=== PATIENT | female | born 1955 | race Caucasian/White ===

== ENCOUNTER 2019-03-25 15:54 | Observation (INO) | payer MEDICARE, SELFPAY ==
[2019-03-08 12:12] VITALS: BP 135/72; PULSE 74; RESP 18; TEMP 36.8; O2SAT 98; BMI 28.6
[2019-03-08 13:18] VITALS: BP 135/72; PULSE 55; RESP 18; TEMP 36.7; O2SAT 98
--- NOTE | 2019-03-08 15:34 | PC.NURSE ---
1530 PT CAME INTO OFFICE AND INFORMED ME SHE JUST SAW DR ZAMARRIPA. DR ZAMARRIPA VIEWED UA WITH REFLEX THAT WAS OBTAINED TODAY AND PLACED PT ON ANTIBIOTIC.I INST PT TO NOTIFY DR PATTON .
--- NOTE | 2019-03-15 14:05 | PC.NURSE ---
PT STATES NO CHANGE IN HEALTH HX FROM 03/08/19
[2019-03-24] VITALS (12 sets, daily range): BP systolic 113–138; BP diastolic 51–75; PULSE 65–108; RESP 12–20; TEMP 36.4–37.3; O2SAT 90–100
--- NOTE | 2019-03-24 07:44 | WPDHPUPDATE1 ---
History and Physical Update Update Date/Time: 03/24/19 07:44 History and Physical has been reviewed, including an updated exam of the patient. There are NO changes in the patient's condition. Risks, benefits, and alternatives have been discussed and questions answered. Patient agrees to proceed with procedure.
--- NOTE | 2019-03-24 13:24 | WPDANESEPPF ---
Anes - Initial Pre Proc Eval Procedure: Operation Date: 03/24/19 13:30 Proposed Procedures p Right Total Knee Arthroplasty(Right) - Ford Hendrix MD Date/Time: 03/24/19 13:24 Surgeon: Ford Hendrix MD Pre Op Diagnosis: Right Knee DJD Patient Data Age: 63 Gender: F Height: 1.71 m Weight: 84.2 kg Last Vital Signs Temp 36.7 C 03/08/19 13:18 Pulse 55 L 03/08/19 13:18 Resp 18 03/08/19 13:18 BP 135/72 03/08/19 13:18 Pulse Ox 98 03/08/19 13:18 Allergies Allergy/AdvReac Type Severity Reaction Status Date / Time prochlorperazine Allergy Mild PT DOESNT Verified 03/24/19 13:09 REMEMBER flurazepam AdvReac Unknown Confusion Verified 03/24/19 13:09 tramadol AdvReac Unknown Nausea and Verified 03/24/19 13:09 Vomiting Contrast Media Allergy Severe ITCHING, Uncoded 03/24/19 13:09 SOB Home Medications Medication Instructions Recorded Confirmed Type cyclosporine 0.05 % eye drops in a 1 drop EACH EYE Q12H 01/21/19 03/24/19 History dropperette estradiol 1 gm VAGINAL WEEKLY 01/21/19 03/24/19 History hydrochlorothiazide 25 mg tablet 12.5 mg PO DAILY 01/21/19 03/24/19 History pantoprazole 40 mg tablet,delayed 40 mg PO QAM 01/21/19 03/24/19 History release cholecalciferol (vitamin D3) 2,000 unit PO DAILY 03/08/19 03/24/19 History lactobacillus combination no.8 3,000 mmu cells PO DAILY 03/08/19 03/24/19 History [Adult Probiotic] potassium chloride [Klor-Con M20] 20 meq PO DAILY 03/08/19 03/24/19 History liraglutide [Victoza 2-Surendra] 1.8 mg SUBCUT DAILY 03/24/19 03/24/19 History ECG: Date of Service: 03/08/19 Procedure(s): CA 12 lead EKG Accession Number(s): [id number] cc: ~ Measurements Intervals Rake Rate: 54 P: 46 OR: 181 QRS: -58 QRSD: 99 T: 9 QT: 418 QTc: 398 Interpretive Statements SINUS BRADYCARDIA LEFT AXIS DEVIATION LOW QRS VOLTAGE IN PRECORDIAL LEADS BORDERLINE T WAVE ABNORMALITY- INFERIOR LEADS BASELINE ARTIFACT- I, II, III, AVR, AVL,A VF, V1-V6 BORDERLINE ECG Electronically Signed On 03-08-2019 13:32:53 [employer] WORK[employer] by Taz Max D.O. Dictated By: Taz Max DO 03/08/19 1321 Patient hx anesthesia problems: post op nausea/vomiting Family hx anesthesia problems: none PMFSH Past Medical History Medical History (Updated 03/24/19 @ 13:27 by Juwan Murrell MD) Anxiety Arthritis B12 deficiency Brain aneurysm BRAIN ANEURYSM WASH U.EVERY 2 YRS.JUST WATCHING Degenerative joint disease of knee Depression Elevated uric acid in blood AZIZA (generalized anxiety disorder) GERD (gastroesophageal reflux disease) Heart murmur Hx of cataract Kidney disease LITA (obstructive sleep apnea) Osteoarthritis Phlebitis Stroke Tinnitus Transient ischemic attack Varicose veins of both legs with edema Surgical History Surgical History H/O elbow surgery H/O shoulder surgery H/O toe surgery H/O wrist surgery H/O: hysterectomy History of cholecystectomy Social History Social History (Updated 03/08/19 @ 14:30 by Tali Chambers) Smoking packs per day: 1 Smoking cigarettes per day: 20.0 Smoking status: Former smoker Tobacco type: cigarettes Second hand tobacco smoke exposure: No Smoking end date: 03/03/08 Alcohol intake: former Substance use: never Substance use type: does not use Additional living arrangements comments: pt lives with boyfriend Gender identity (if verbalized by the patient): Female Anes - Eval Final PreProcedure Day of Procedure 03/24/19 13:24 Patient weight: overweight Heart: regular rate and rhythm Lungs: clear to auscultation and normal air movement Airway:
[2019-03-24] MEDS: LACTATED RINGERS 1,000 ML 30 ML IV CONT ×2 (13:25→17:04)
[2019-03-24] MEDS: IBUPROFEN IV 800 MG/200 ML 800 MG/200 ML BAG 400 MG IVPB (13:25)
--- NOTE | 2019-03-24 14:03 | WPDANESPNB ---
Anes - Peripheral Nerve Block Date/Time: 03/24/19 14:03 I have discussed with the patient/family/POA the placement of a peripheral nerve block for post-operative pain management, including associated risks, benefits, complications, and side effects. Alternative methods of post-operative analgesia were detailed. Questions were solicited and answers provided to the satisfaction of the patient/family/POA. Time-Out: A pre-procedural Time-Out was completed immediately before starting the procedure and confirmed: Patient Identification, Site, Procedure, Patient Position and the Availability of Requisite Equipment. Clinical Indications: Acute post-operative pain management requested by the operative surgeon. Nerve Block Insertion Note Anes-nerve block: adductor canal right Patient position: supine Skin prep: chlorhexidine Needle: 22 gauge, stimulating, insulated echogenic needle. Needle length: 80 mm Technique: ultrasound Technique comment: in plane Injectate: bupivacaine 0.5% with epi 5 mcg/ml (30cc) Observations: tolerated well Complications: none Procedure start time:: 1355 Procedure end time:: 1400
[2019-03-24] MEDS: ceFAZolin 2 GM/D5W 50 ML 2 GM/50 ML BAG IVPB (14:33)
--- NOTE | 2019-03-24 16:59 | PM.OP ---
Procedure Note - Brief Procedure Note - Brief Date of procedure: 03/24/19 Pre-op diagnosis: Right Knee DJD Post-op diagnosis: same Procedure performed: R TKA Anesthesia: GETA Surgeon: Ford Hendrix MD Estimated blood loss (mL): 100 Complications: No immediate complications Condition: stable Disposition: PACU
[2019-03-24] MEDS: HYDROMORPHONE HCL 1 MG/ML INJ 0.25 MG IV PUSH ×2 (17:09→17:25)
[2019-03-24] MEDS: ONDANSETRON INJ 4 MG/2 ML VIAL IV PUSH ×2 (18:10→22:07)
--- NOTE | 2019-03-24 18:50 | PC.NURSE ---
This patient, Phyllis Gallegos, was admitted to [facility] Surg Room 309-01. Patient/family oriented to hospital policies and general routines including ID bracelet, bed and alarms, visiting hours, pain management, procedures, bathroom and other care routines, personal items, smoking policy, room service/diet, and visiting hours. Valuables list has been completed. Information on how to activate the Rapid Response Team has been discussed. Patient/Family are encouraged to report perceived risks to care and to ask questions if they do not understand what they are told or what they should do.
[2019-03-24] MEDS: SODIUM CHLORIDE 0.9% IV 1,000 ML 125 ML IV CONT (19:11)
--- NOTE | 2019-03-24 19:41 | OP_ITS ---
DATE OF PROCEDURE: 03/24/2019 PREOPERATIVE DIAGNOSIS: Right knee DJD. POSTOPERATIVE DIAGNOSIS: Right knee DJD. PROCEDURE: Right total knee arthroplasty. ANESTHESIA: General. COMPLICATIONS: None. INDICATIONS: This is a 63-year-old female with end-stage right knee DJD with valgus deformity. She was indicated for right total knee arthroplasty. DESCRIPTION OF PROCEDURE: The patient was taken to the operating room in stable condition and placed in supine position. General anesthesia was induced and the right lower extremity was prepped and draped sterilely from the toes to the thigh. A midline skin incision was made. Medial parapatellar arthrotomy was made. Patella was everted. There was severe arthrosis in all 3 components of the knee, less in the patellofemoral component. An IM seda was placed in the femur. Distal femoral cut was made at 5 degrees of valgus, removing approximately 9 mm from the high side. Next, the knee was sized to 67.5, so a cutting block was placed in line with Whitesides line and with the transepicondylar axis and anterior-posterior chamfer cuts were made to the femur. Next, an IM seda was placed in the tibial canal and a transtibial cut was made removing approximately 10 mm of bone from the high side of the tibia. The tibia then was planed to a smooth surface. Posterior osteophytes were removed from the femur. A 79 tibial trial was placed in line with one-third medial aspect of the tibial tubercle, and then a 7.5 femoral trial was placed, and then starting with a 10 poly, the trials went up to a 14 that afforded good stability. There was significant laxity with the medial collateral ligament at a 12 poly, so a 14 was tried, that offered good stability with varus-valgus stress to both the medial and lateral sides. The AP plane also was stable. The patella tracked without any tilt. The knee came out to full extension and there was no excessive rollback in flexion. Next, the trial instrumentation were removed, and then a Biomet tibial component measuring 79 and a femoral component measuring 67.5 were both cemented into place, and then a 14 poly component was secured into place. The knee came out to full extension and the cement was allowed to harden. Once cement was hardened, excess cement was removed from the periphery of the implant. The tourniquet was deflated and the bleeders were cauterized. The wound was then irrigated thoroughly with sterile Betadine and sterile water for 3 minutes. Next, the arthrotomy was approximated with #1 Vicryl. Subcutaneous tissues were approximated with 2-0 Vicryl and skin was approximated with kush. Wound was washed, placed sterile dressing. The patient was extubated and sent to recovery. Lori I MT: Marlys
[2019-03-24] MEDS: MORPHINE SULFATE 4 MG/ML INJ IV PUSH (22:10)
--- NOTE | ~2019-03-25 | XR_ITS ---
XR knee RT 2V DATE: 03/24/2019 17:18 INDICATION: Right total knee replacement TECHNIQUE: Postoperative 2 view examination COMPARISON: None FINDINGS: Anterior skin kush are noted. There is expected postoperative subcutaneous and intra-art icular gas. Status post right total knee arthroplasty without patellar resurfacing. No fracture or dislocation, p eriosteal reaction or bone destruction. There is diffuse osteopenia. IMPRESSION: Right knee arthroplasty Reviewed, dictated and finalized at location B. OPERATOR IMPRESSION: Right knee arthroplasty
[2019-03-25] MEDS: ceFAZolin 2 GM/D5W 50 ML 2 GM/50 ML BAG IVPB ×3 (00:03→13:56)
[2019-03-25] MEDS: SODIUM CHLORIDE 0.9% IV 1,000 ML 125 ML IV CONT ×3 (03:46→20:39)
--- NOTE | 2019-03-25 04:11 | PM.IMCN ---
Assessment and Plan Assessment and plan (1) S/P total knee arthroplasty: Qualifiers: Laterality: right Qualified Code(s): Z96.651 - Presence of right artificial knee joint Code(s): Z96.659 - Presence of unspecified artificial knee joint Status: Acute Assessment and Plan: Continue pain control w/ narcotic medications. Continue zofran for nausea and vomiting. Continue Ortho recommendations. (2) Prediabetes: Code(s): R73.03 - Prediabetes Status: Chronic Assessment and Plan: Continue Victoza (3) Anxiety: Code(s): F41.9 - Anxiety disorder, unspecified Status: Acute Assessment and Plan: We will consider anxiolytic medications as needed. (4) GERD (gastroesophageal reflux disease): Qualifiers: Esophagitis presence: esophagitis presence not specified Qualified Code(s): K21.9 - Gastro-esophageal reflux disease without esophagitis Code(s): K21.9 - Gastro-esophageal reflux disease without esophagitis Status: Acute Assessment and Plan: Continue protonix. (5) Osteoarthritis: Qualifiers: Osteoarthritis location: unspecified site Osteoarthritis type: unspecified Qualified Code(s): M19.90 - Unspecified osteoarthritis, unspecified site Code(s): M19.90 - Unspecified osteoarthritis, unspecified site Status: Chronic Assessment and Plan: Continue pain medications. (6) Chronic edema: Code(s): R60.9 - Edema, unspecified Status: Chronic Assessment and Plan: The patient has chronic LLE edema after having vein stripping years ago. Continue HCTZ for same. Additional Plan Date of service was 03/25/2019 at 04:00 HPI Data of Consult Consult date: 03/25/19 Requesting Physician: Ford Hendrix MD Primary Care Provider: Avani Townsend MD Consult Narrative Narrative: Thank you for consulting us to see this 63 year old female who is known to be prediabetic and who is s/p right TKA secondary to DJD. The patient has mild right knee pain but otherwise her pain is controlled. She has had nausea and vomiting tonight. She denies any other symptoms. No chest pain, fevers, cough, abdominal pain, dysuria, hematuria, diarrhea or rectal bleeding. No other complaints tonight. Review of Systems Review of Systems: All systems reviewed & are unremarkable except as noted in HPI and below PMFSH Past Medical History Medical History Anxiety Arthritis B12 deficiency Brain aneurysm BRAIN ANEURYSM WASH U.EVERY 2 YRS.JUST WATCHING Degenerative joint disease of knee Depression Elevated uric acid in blood AZIZA (generalized anxiety disorder) GERD (gastroesophageal reflux disease) Heart murmur Hx of cataract Kidney disease LITA (obstructive sleep apnea) Osteoarthritis Phlebitis Stroke Tinnitus Transient ischemic attack Varicose veins of both legs with edema Surgical History Surgical History H/O elbow surgery H/O shoulder surgery H/O toe surgery H/O wrist surgery H/O: hysterectomy History of cholecystectomy Family History Family History Father Vein disorder Grandparent Vein disorder Mother Vein disorder Social History Social History Smoking packs per day: 1 Smoking cigarettes per day: 20.0 Smoking status: Former smoker Tobacco type: cigarettes Second hand tobacco smoke exposure: No Smoking end date: 03/03/08 Alcohol intake: former Substance use: never Substance use type: does not use Additional living arrangements comments: pt lives with boyfriend Gender identity (if verbalized by the patient): Female Spiritual care concerns: No Agree to blood products: No Meds Home Medications and Allergies Home Medications Medicati
[2019-03-25] MEDS: ONDANSETRON INJ 4 MG/2 ML VIAL IV PUSH ×3 (04:15→23:43)
[2019-03-25] MEDS: MORPHINE SULFATE 4 MG/ML INJ IV PUSH (04:15)
[2019-03-25 06:36] VITALS: BP 106/54; PULSE 89; RESP 16; TEMP 37.1; O2SAT 95
[2019-03-25 06:46] LABS: Basophils Percent Auto 0.1 % (0.2-1.2); Hematocrit 36.5 % (37.0-47.0); Hemoglobin 11.7 g/dL (12.0-15.0); Immature Granulocyte Absolute 0.04 K/mm3 (0.00-0.031); Immature Granulocyte Percent A 0.6 % (0-0.5); Lymphocytes Absolute Auto 0.35 K/mm3 (0.9-3.2); Lymphocytes Percent Auto 5.2 % (18.3-44.2); Mean Corpuscular HGB Conc 32.1 g/dl (32-36); Mean Corpuscular Hemoglobin 30.5 pg (26-34); Mean Corpuscular Volume 95.3 fl (80-100); Mean Platelet Volume 10.2 fl (7.4-10.4); Monocytes Absolute Auto 0.5 K/mm3 (0.1-0.6); Monocytes Percent Auto 7.5 % (2.6-8.5); Neutrophils Absolute Auto 5.9 K/mm3 (1.3-6.7); Neutrophils Percent Auto 86.6 % (45.5-73.1); Platelet Count Result 151 k/mm3 (150-375); Red Blood Count 3.83 M/mm3 (4.2-5.4); Red Cell Distribution Width 12.8 % (11.5-14.5); White Blood Count 6.8 K/mm3 (4.5-10.0)
[2019-03-25 06:59] LABS: Blood Urea Nitrogen 13 mg/dL (7-17); Calcium 8.4 mg/dL (8.4-10.2); Carbon Dioxide 25 mmol/L (22-30); Chloride 101 mmol/L (98-107); Estimated CRCL calculation 81 ml/min; Estimated Glomerular Filt Rate > 60; Glucose 140 mg/dL (65-105); Sodium 134 mmol/L (137-145)
--- NOTE | 2019-03-25 09:33 | P.PNAN_ITS ---
Anes - Prog Note Post-Op Date/Time: 03/25/19 09:33 Cardiovascular status: normal Respiratory status: normal Airway patency: baseline Mental status: baseline Post-Op hydration status: normal Vital Signs: Last Vital Signs Temp 37.1 C 03/25/19 06:36 Pulse 89 03/25/19 06:36 Resp 16 03/25/19 06:36 BP 106/54 L 03/25/19 06:36 Pulse Ox 95 03/25/19 06:36 Pain Score (VAS): 0/10. Patient resting up to bedside chair at time of assessment, appears comfortable. Discussed nausea and vomitting with patient, reviewed available PRN meds with RN. RN to administer PRN nausea medication following available orders. Discussed questions and concerns with patient to patient satisfaction. I/O: Intake & Output 03/24/19 03/25/19 03/25/19 23:59 07:59 15:59 Intake Total 400 1100 Output Total 50 600 Balance 350 500 Laboratory Tests 03/25/19 05:59 03/25/19 05:59 03/24/19 03/25/19 03/25/19 13:15 05:59 05:59 WBC 6.8 RBC 3.83 L Hgb 11.7 L Hct 36.5 L MCV 95.3 MCH 30.5 MCHC 32.1 RDW 12.8 Plt Count 151 MPV 10.2 Immature Gran % (Auto) 0.6 H Neut % (Auto) 86.6 H Lymph % (Auto) 5.2 L Payette % (Auto) 7.5 Eos % (Auto) 0.0 Baso % (Auto) 0.1 L Lymph # (Auto) 0.35 L Payette # (Auto) 0.5 Eos # (Auto) 0.0 Baso # (Auto) 0.0 Abs Immat Gran (auto) 0.04 H Absolute Neuts (auto) 5.9 Absolute Nucleated RBC 0.0 Nucleated RBC % 0.0 Sodium 134 L Potassium 4.0 Chloride 101 Carbon Dioxide 25 BUN 13 D Creatinine 0.70 Estim Creat Clear Calc 81 Estimated GFR > 60 Glucose 140 H Calcium 8.4 Blood Type AB Positive Antibody Screen Negative Post-procedural complaints: nausea (relief with PRN meds. ) and vomiting Patient Feedback: Patient satisfied with anesthetic care.
--- NOTE | 2019-03-25 09:44 | PM.PNORT ---
Progress Note: A&P Assessment and Plan (1) S/P total knee arthroplasty: Qualifiers: Laterality: right Qualified Code(s): Z96.651 - Presence of right artificial knee joint Code(s): Z96.659 - Presence of unspecified artificial knee joint Status: Acute Assessment and Plan: POD #1: RIGHT TKA Continue PT/OT. WBAT with walker. Fall Risk. Continue Pain Control. Ice Knee. No pillows under knee. Continue DVT prophylaxis with Aspiring 325mg PO BID. SCDs. Incentive Spirometry. Monitor dressing. To be changed prior to discharge. Zofran for nausea Dispo: Home with Home Health pending progress with PT/OT. Subjective Subjective Date/Time Seen: 03/25/19 09:44 Post Op day: 1 Principal diagnosis: Right Knee DJD Interval history: POD #1 RIGHT TKA. Patient complains of nausea/heart burn. She is concerned she hasn't been given her protonix yet this morning. She also reports decreased appetite. Right knee pain well-controlled. Review of Systems Review of Systems: All systems reviewed & are unremarkable except as noted in HPI and below Constitutional: Constitutional: Denies fever(s) and Denies headache(s) ENT: Denies headache(s) Cardiovascular: Cardiovascular: Denies chest pain, Denies diaphoresis, Denies palpitations and Denies dyspnea Respiratory: Respiratory: Denies dyspnea Gastrointestinal: Gastrointestinal: Denies abdominal pain, Denies constipation, Reports heartburn, Reports nausea and Denies vomiting Genitourinary: Genitourinary: Reports nocturia and Denies dysuria Musculoskeletal: Musculoskeletal: Reports arthralgias (Right Knee ) and Reports joint swelling (Right Knee ) Neurologic: Denies headache(s) Endocrine: Endocrine: Denies palpitations Exam Const: General: comfortable and no acute distress Resp: Effort & Inspection: normal respiratory effort Cardio: Rate: regular rate Rhythm: regular rhythm GI: Inspection: non-distended GI Palp: Yes Soft to palpation, No Tenderness to palpation present (GI) and No Guarding due to palpation present (GI) Skin: Wounds: wounds noted (right TKA incision ) Other: Incision c/d/i. No surrounding redness/warmth. No hematoma. Mild ecchymosis. No wound dehiscence Neuro: Cognition (Neuro): normal cognition Other: NV intact aside from block. Moves toes. Sensation intact to light touch. +ankle dorsiflexion/plantarflexion. Extrem: Right upper extremity: normal to inspection, full ROM and normal capillary refill Left upper extremity: normal to inspection, full ROM and normal capillary refill Right lower extremity: normal to inspection, full ROM (ROM limited due to recent surgical intervention ) and knee Details: tenderness (diffuse, mild ), swelling (diffuse, mild ) and abnormal ROM (limited due to recent surgical intervention (RIGHT TKA) ) Details: pain with active ROM during, pain with passive ROM during and with range as follows (limited ) Left lower extremity: normal to inspection Other: RLE: 2+ pedal pulses. +ankle dorsiflexion/plantarflexion. Negative Colleen's sign. Moves toes. Sensation intact to light touch. Psych: Mental Status: mental status grossly normal Affect: Anxious affect present Objective Data Vital Signs Vital Signs: Vital Signs - 24 hr 03/24/19 13:06 03/24/19 17:05 03/24/19 17:20 Temperature 37.0 C 37.3 C Pulse Rate 65 103 H 102 H Respiratory Rate 20 13 12 Blood Pressure 121/67 120/54 L 120/58 L Pulse Oximetry 90 100 98 03/24/19 17:34 03/24/19 17:49 03/24/19 18:05 Temperature Pulse Rate 93 89 108 H Respiratory Rate 12 14 20 Blood Pressure 119/66 121/61 138/59 L Pulse Oximetry 98 95 94 03/24/19 18:20 03/24/19 18:50 03/24/19 19:05 Temperature 36.7 C Pulse Rate 96 99 90 Respiratory Rate 16 18 16 Blood Pressure 123/59 L 125/75 113/54 L Pulse Oximetry 95 93 94 03/24/19 20:35 03/24/19 22:00 03/25/19 06:36 Temperature 36.6 C 36.7 C 37.1 C Pulse Rate 69 86 89 Respiratory Rate 16 16 16 Blood Pres
[2019-03-25] MEDS: PANTOPRAZOLE 40 MG TABLET PO (10:07)
[2019-03-25] MEDS: ACIDOPHILUS/BULGARICUS CHEWABLE TABLET 1 TABLET PO (10:07)
[2019-03-25] MEDS: CHOLECALCIFEROL 1,000 UNIT TABLET 2000 UNITS PO (10:07)
[2019-03-25] MEDS: ASPIRIN 325 MG ENTERIC TABLET 650 MG PO (10:07)
[2019-03-25] MEDS: DOCUSATE SODIUM 100 MG CAPSULE PO ×2 (10:07→16:29)
[2019-03-25] MEDS: POTASSIUM CHLORIDE 20 MEQ TABLET.ER PO (10:07)
[2019-03-25] MEDS: ACETAMINOPHEN 500 MG TABLET 1000 MG PO ×3 (10:11→22:25)
[2019-03-25] MEDS: hydroCHLOROthiazide 12.5 MG CAPSULE PO (10:12)
[2019-03-25 11:02] VITALS: BP 112/44; PULSE 85; RESP 18; TEMP 37.9; O2SAT 99
[2019-03-25] MEDS: DIAZEPAM 5 MG TABLET PO ×2 (12:28→20:28)
--- NOTE | 2019-03-25 12:33 | PC.NURSE ---
Pt refusing all narcotics. Pt states they will make her sick even with zofran. Pt agreeable to taking tylenol only even though pain is 10/10. Pt also refusing Celebrex.
[2019-03-25 15:04] VITALS: BP 103/49; PULSE 86; RESP 20; TEMP 38.2; O2SAT 99
--- NOTE | 2019-03-25 15:29 | PM.IMPN ---
Progress Note: A&P Assessment and Plan (1) S/P total knee arthroplasty: Qualifiers: Laterality: right Qualified Code(s): Z96.651 - Presence of right artificial knee joint Code(s): Z96.659 - Presence of unspecified artificial knee joint Status: Acute Assessment and Plan: Postop day 1 and the patient is doing well with therapy. Her pain is currently controlled after taking some Valium for some intermittent spasming to her knee. She has not been taking any narcotic pain medications and is using Tylenol with relief. The plan is to continue working with the patient with PT OT tomorrow and if continues to do well she should be stable to be discharged home with home. Pain management per Dr. Hendrix Discharge planning per Dr. Hendrix Post-op care per Dr. Hendrix DVT Prophylaxis per Dr. Hendrix (2) Prediabetes: Code(s): R73.03 - Prediabetes Status: Chronic Assessment and Plan: Continue Victoza (3) Anxiety: Code(s): F41.9 - Anxiety disorder, unspecified Status: Acute Assessment and Plan: We will consider anxiolytic medications as needed. (4) GERD (gastroesophageal reflux disease): Qualifiers: Esophagitis presence: esophagitis presence not specified Qualified Code(s): K21.9 - Gastro-esophageal reflux disease without esophagitis Code(s): K21.9 - Gastro-esophageal reflux disease without esophagitis Status: Acute Assessment and Plan: Continue protonix. (5) Osteoarthritis: Qualifiers: Osteoarthritis location: unspecified site Osteoarthritis type: unspecified Qualified Code(s): M19.90 - Unspecified osteoarthritis, unspecified site Code(s): M19.90 - Unspecified osteoarthritis, unspecified site Status: Chronic Assessment and Plan: Continue pain medications. (6) Chronic edema: Code(s): R60.9 - Edema, unspecified Status: Chronic Assessment and Plan: The patient has chronic LLE edema after having vein stripping years ago. Continue HCTZ for same. Time Spent With Patient Time with patient: 25 - 35 minutes Subjective Date/time seen: 03/25/19 15:29 Interval history: Date of service 03/25/2019: The patient is feeling well today and did well with physical and occupational therapy. She denies much pain to her knee but reports intermittent spasming to her thigh area. She does not want to take any narcotics but she reported that Valium helped with her muscle spasms. She was having some nausea this morning but she has been able to tolerate cream of wheat and wheat without any issues. She is having flatulence but denies any bowel movements yet. She denies any chest pain, shortness of breath, cough, vomiting, diarrhea, or any other symptoms at this time. Review of Systems Review of Systems: All systems reviewed & are unremarkable except as noted in HPI and below Exam Narrative: Exam Narrative: General: 63-year-old woman sitting up in bed with PT working with her knee. Appears comfortable. In no acute distress. Skin: No jaundice or cyanosis. Good skin turgor. Neck: Full range of motion. Supple. Respiratory: Lungs are clear to auscultation bilaterally. No bony chest wall tenderness. Cardiovascular: The heart has a regular rate and rhythm without murmur. Lower extremities: Right knee with cold compress in place. Unable to further visualize surgical site secondary to dressing and ice. No lower extremity edema. Distal pulses are easily palpated. No calf tenderness to palpation. Gastrointestinal: The abdomen is soft, nontender and nondistended with active bowel sounds. Psychiatric: Lucid and oriented.
[2019-03-25] MEDS: CELECOXIB 200 MG CAPSULE PO (16:30)
[2019-03-25 22:33] VITALS: BP 105/56; PULSE 81; RESP 20; TEMP 36.7; O2SAT 94
[2019-03-26] MEDS: SODIUM CHLORIDE 0.9% IV 1,000 ML 125 ML IV CONT (03:36)
[2019-03-26] MEDS: ONDANSETRON INJ 4 MG/2 ML VIAL IV PUSH (03:38)
[2019-03-26] MEDS: DIAZEPAM 5 MG TABLET PO (04:45)
[2019-03-26 06:00] VITALS: BP 111/43; PULSE 86; RESP 20; TEMP 37.2; O2SAT 100
[2019-03-26 06:25] LABS: Blood Urea Nitrogen 13 mg/dL (7-17); Calcium 7.9 mg/dL (8.4-10.2); Carbon Dioxide 25 mmol/L (22-30); Chloride 104 mmol/L (98-107); Estimated CRCL calculation 81 ml/min; Estimated Glomerular Filt Rate > 60; Glucose 94 mg/dL (65-105); Potassium 3.5 mmol/L (3.4-5.0); Sodium 135 mmol/L (137-145)
[2019-03-26] MEDS: PANTOPRAZOLE 40 MG TABLET PO (08:31)
[2019-03-26] MEDS: hydroCHLOROthiazide 12.5 MG CAPSULE PO (08:31)
[2019-03-26] MEDS: ACIDOPHILUS/BULGARICUS CHEWABLE TABLET 1 TABLET PO (08:31)
[2019-03-26] MEDS: DOCUSATE SODIUM 100 MG CAPSULE PO (08:31)
[2019-03-26] MEDS: CHOLECALCIFEROL 1,000 UNIT TABLET 2000 UNITS PO (08:31)
[2019-03-26] MEDS: CELECOXIB 200 MG CAPSULE PO ×2 (08:31→17:01)
[2019-03-26] MEDS: POTASSIUM CHLORIDE 20 MEQ TABLET.ER PO (08:31)
[2019-03-26] MEDS: ASPIRIN 325 MG ENTERIC TABLET 650 MG PO (08:32)
--- NOTE | 2019-03-26 10:37 | PM.PNORT ---
Progress Note: A&P Assessment and Plan (1) S/P total knee arthroplasty: Qualifiers: Laterality: right Qualified Code(s): Z96.651 - Presence of right artificial knee joint Code(s): Z96.659 - Presence of unspecified artificial knee joint Status: Acute Assessment and Plan: POD #2: RIGHT TKA Continue PT/OT. WBAT with walker. Fall Risk. Continue Pain Control. Ice Knee. No pillows under knee. Continue DVT prophylaxis with Aspirin 325mg PO BID. SCDs. Incentive Spirometry. Monitor dressing. To be changed prior to discharge. Zofran for nausea Dispo: Home with Home Health abundio today Subjective Subjective Date/Time Seen: 03/26/19 10:37 Post Op day: 2 Principal diagnosis: Right TKA Interval history: Patient doing better. Nausea under control. Pain controlled. Bathing at bedside. Appetite increased. Review of Systems Review of Systems: All systems reviewed & are unremarkable except as noted in HPI and below Constitutional: Constitutional: Denies fever(s) and Denies headache(s) ENT: Denies headache(s) Cardiovascular: Cardiovascular: Denies chest pain, Denies diaphoresis, Denies palpitations and Denies dyspnea Respiratory: Respiratory: Denies dyspnea Gastrointestinal: Gastrointestinal: Denies abdominal pain, Denies constipation, Reports nausea and Denies vomiting Genitourinary: Genitourinary: Reports nocturia and Denies dysuria Musculoskeletal: Musculoskeletal: Reports arthralgias (Right Knee ) and Reports joint swelling (Right Knee ) Neurologic: Denies headache(s) Endocrine: Endocrine: Denies palpitations Exam Const: General: comfortable and no acute distress Resp: Effort & Inspection: normal respiratory effort Cardio: Rate: regular rate Rhythm: regular rhythm GI: Inspection: non-distended GI Palp: Yes Soft to palpation, No Tenderness to palpation present (GI) and No Guarding due to palpation present (GI) Skin: Wounds: wounds noted (right TKA incision ) Other: Incision c/d/i. No surrounding redness/warmth. No hematoma. Mild ecchymosis. No wound dehiscence Neuro: Cognition (Neuro): normal cognition Other: NV intact aside from block. Moves toes. Sensation intact to light touch. +ankle dorsiflexion/plantarflexion. Extrem: Right upper extremity: normal to inspection, full ROM and normal capillary refill Left upper extremity: normal to inspection, full ROM and normal capillary refill Right lower extremity: normal to inspection, full ROM (ROM limited due to recent surgical intervention ) and knee Details: tenderness (diffuse, mild ), swelling (diffuse, mild ) and abnormal ROM (limited due to recent surgical intervention (RIGHT TKA) ) Details: pain with active ROM during, pain with passive ROM during and with range as follows (limited ) Left lower extremity: normal to inspection Other: RLE: 2+ pedal pulses. +ankle dorsiflexion/plantarflexion. Negative Colleen's sign. Moves toes. Sensation intact to light touch. Psych: Mental Status: mental status grossly normal Affect: Anxious affect present Objective Data Vital Signs Vital Signs: Vital Signs - 24 hr 03/25/19 11:02 03/25/19 15:04 03/25/19 22:33 Temperature 37.9 C H 38.2 C H 36.7 C Pulse Rate 85 86 81 Respiratory Rate 18 20 20 Blood Pressure 112/44 L 103/49 L 105/56 L Pulse Oximetry 99 99 94 03/26/19 06:00 Temperature 37.2 C Pulse Rate 86 Respiratory Rate 20 Blood Pressure 111/43 L Pulse Oximetry 100 Intake/Output Intake/Output: Intake & Output 03/23/19 03/24/19 03/25/19 03/26/19 23:59 23:59 23:59 23:59 Intake Total 750 3750 2510 Output Total 50 2100 1200 Balance 700 1650 1310 Meds/Results Medications: Active Medications Generic Name Dose Route Start Last Admin Trade Name Freq PRN Reason Stop Dose Admin Acetaminophen 1,000 mg 03/24/19 17:00 03/25/19 22:25 Tylenol Tablet PO 1,000 mg Q6H PRN Administration Mild Pain (1-3) Aspirin 650 mg 03/25/19 09:00 03/26/19 08:32 As
--- NOTE | 2019-03-26 13:37 | PM.IMPN ---
Progress Note: A&P Assessment and Plan (1) S/P total knee arthroplasty: Qualifiers: Laterality: right Qualified Code(s): Z96.651 - Presence of right artificial knee joint Code(s): Z96.659 - Presence of unspecified artificial knee joint Status: Acute Assessment and Plan: Postop day #2 and the patient is doing well with therapy. Her pain is currently controlled after taking some Valium and narcotic pain medications. She reports having one more therapy treatment and then she was going to be discharged home. From my perspective the patient is stable for discharge home today. Pain management per Dr. Hendrix Discharge planning per Dr. Hendrix Post-op care per Dr. Hendrix DVT Prophylaxis per Dr. Hendrix (2) Prediabetes: Code(s): R73.03 - Prediabetes Status: Chronic Assessment and Plan: Continue Victoza (3) Anxiety: Code(s): F41.9 - Anxiety disorder, unspecified Status: Acute Assessment and Plan: We will consider anxiolytic medications as needed. (4) GERD (gastroesophageal reflux disease): Qualifiers: Esophagitis presence: esophagitis presence not specified Qualified Code(s): K21.9 - Gastro-esophageal reflux disease without esophagitis Code(s): K21.9 - Gastro-esophageal reflux disease without esophagitis Status: Acute Assessment and Plan: Continue protonix. (5) Osteoarthritis: Qualifiers: Osteoarthritis location: unspecified site Osteoarthritis type: unspecified Qualified Code(s): M19.90 - Unspecified osteoarthritis, unspecified site Code(s): M19.90 - Unspecified osteoarthritis, unspecified site Status: Chronic Assessment and Plan: Continue pain medications. (6) Chronic edema: Code(s): R60.9 - Edema, unspecified Status: Chronic Assessment and Plan: The patient has chronic LLE edema after having vein stripping years ago. Continue HCTZ for same. Patient has concerns about slight noticable left leg swelling with recent decrease to HCTZ and her potassium level. I will check her BMP in 1 week and have her follow up with her PCP as an outpatient. (7) Hyponatremia: Code(s): E87.1 - Hypo-osmolality and hyponatremia Status: Acute Assessment and Plan: Slight hyponatremia this admission post op. Most likely secondary to HCTZ diuretic. Will check BMP in 1 week and have her follow up with PCP. Time Spent With Patient Time with patient: 25 - 35 minutes Subjective Date/time seen: 03/26/19 13:37 Interval history: Date of service 03/26/2019: The patient is feeling well today and did well with physical and occupational therapy. Her pain is controlled at this time. She did take some narcotic pain medications with relief of her pain. She is eating and drinking without any issues. She denies chest pain, shortness of breath, fever, chills, nausea, vomiting, diarrhea, or any other complaints at this time. She reports slight left lower ankle swelling which has been present since her PCP decreased HCTZ to 12.5 mg. She is having flatulence but denies any bowel movements yet. Review of Systems Review of Systems: All systems reviewed & are unremarkable except as noted in HPI and below Exam Narrative: Exam Narrative: General: 63-year-old woman sitting up in the recliner chair with an ice pack in place in her regular clothes. Appears comfortable. In no acute distress. Skin: No jaundice or cyanosis. Good skin turgor. Neck: Full range of motion. Supple. Respiratory: Lungs are clear to auscultation bilaterally. No bony chest wall tend
[2019-03-26 14:34] VITALS: BP 100/60; PULSE 85; RESP 18; TEMP 37.7; O2SAT 100
[2019-03-26 15:44] VITALS: O2SAT 95
--- NOTE | 2019-03-26 16:28 | PM.DS ---
DS: Diagnosis Admitting Diagnosis Admitting Diagnosis: Unilateral primary osteoarthritis, unspecified knee DS: Summary Hospital Course Reason for hospitalization: Right TKA Hospital Course: 63 year old female admitted s/p right tka for postoperative pain management and medical management. Patient progressed well with formal PT/OT and was deemed safe for discharge home with home health. Patient cleared from a medical standpoint as well. She is scheduled to follow up with Dr. Hendrix as an outpatient in 3 weeks. Status at Discharge Functional status at discharge: uses cane/walker Overall status at discharge: patient is progressing back to baseline Time Spent with Patient Time attestation: Total time spent providing and/or coordinating discharge services: Exam Const: General: comfortable and no acute distress Resp: Effort & Inspection: normal respiratory effort Cardio: Rate: regular rate Rhythm: regular rhythm GI: Inspection: non-distended GI Palp: Yes Soft to palpation, No Tenderness to palpation present (GI) and No Guarding due to palpation present (GI) Skin: Wounds: wounds noted (right TKA incision ) Other: Incision c/d/i. No surrounding redness/warmth. No hematoma. Mild ecchymosis. No wound dehiscence Neuro: Cognition (Neuro): normal cognition Other: NV intact aside from block. Moves toes. Sensation intact to light touch. +ankle dorsiflexion/plantarflexion. Extrem: Right upper extremity: normal to inspection, full ROM and normal capillary refill Left upper extremity: normal to inspection, full ROM and normal capillary refill Right lower extremity: normal to inspection, full ROM (ROM limited due to recent surgical intervention ) and knee Left lower extremity: normal to inspection Other: RLE: 2+ pedal pulses. +ankle dorsiflexion/plantarflexion. Negative Colleen's sign. Moves toes. Sensation intact to light touch. Psych: Mental Status: mental status grossly normal Affect: Anxious affect present DS: Data Data Completed and Pending Labs on day of discharge: Labs from last 24 hours 03/26/19 05:23 Sodium 135 L Potassium 3.5 Chloride 104 Carbon Dioxide 25 BUN 13 Creatinine 0.70 Estim Creat Clear Calc 81 Estimated GFR > 60 Glucose 94 Calcium 7.9 L Discharge Plan Discharge Attending physician on discharge: Ford Hendrix Consulting providers: Jeniffer Rossi ; Jt Dias Discharging Clinician: Carolina Felix Anticipated Discharge Date/Time: 03/26/19 16:00 Patient Disposition: Home Health Service Activity: may shower, no driving and follow weight bearing status Diet: as tolerated Wound Care Instructions: follow printed instructions Discharge Instructions: Orthopedic Discharge Instructions: Your dressing will be changed today prior to your discharge. You will be sent with one additional dressing to be changed by the home health RN in 5 days. Your kush will be removed on the 14th day after surgery. You may shower but DO NOT submerge in a bath tub until released by Dr. Hendrix. Please walk with a walker at all times until released by Dr. Hendrix. Do not drive until released by Dr. Hendrix. Continue use of your ice machine. Protect your skin with a sheet/towel prior to applying ice machine. Your medications have been called into your pharmacy. Follow up as previously scheduled, your appointment is also indicated in these instructions. Contact our office with any questions or concerns at [phone]. Care Coordination. Pt. to have [facility] for RN/ PT/OT eval and treat following knee surgery [phone]. They will contact patient to schedule first appointment. Patient Instructions: Antibiotic Form Stand Alone Forms: General Discharge Information Follow-up/Referrals: Ford Hendrix MD [Physician] - 04/16/19 1:30 pm Discharge Medications: New celecox
== END 2019-03-26 17:30 | disposition home health service (06) ==
LOC: ANHSURGERY 16:03 → ANH3MEDSUR 16:03
PROVIDERS: Physician Assistant; Admitting Provider Orthopaedic Surgery; PCP Family Medicine; Visit Provider Orthopaedic Surgery
PROC: (CPT 27447; principal; 2019-03-24 13:30)
DX: M17.11 Unilateral primary osteoarthritis, right knee (principal); G89.18 Other acute postprocedural pain; M25.561 Pain in right knee; G89.29 Other chronic pain; G47.33 Obstructive sleep apnea (adult) (pediatric); F41.1 Generalized anxiety disorder; R60.0 Localized edema; Z98.890 Other specified postprocedural states; Z86.718 Personal history of other venous thrombosis and embolism; Z86.73 Personal history of transient ischemic attack (TIA), and cerebral infarction without residual deficits; Z87.891 Personal history of nicotine dependence
CPT/HCPCS: 27447; 64447; 36415; 73560; 80048; 85025; 86850; 86900; 86901; 97110; 97116; 97161; 97165; 97530; A9270; C1713; C1776; G0378; J0131; J0171; J0690; J1100; J1165; J1170; J1741; J2250; J2270; J2370; J2405; J2704; J2795; J3010; J7030; J7120

== ENCOUNTER 2019-04-07 03:22 | Emergency (ER) | payer MEDICARE, SELFPAY ==
[2019-04-07 03:30] VITALS: BP 117/87; PULSE 92; RESP 22; TEMP 36.9; O2SAT 100
--- NOTE | 2019-04-07 03:40 | ED.ALLEREA ---
HPI - Allergic Reaction General Chief complaint: Allergic Reaction Stated complaint: ALLERGIC REACTION Time Seen by Provider: 04/07/19 03:32 History of Present Illness HPI narrative: Hives since last night. Most prominent on the buttocks, but present on extremities as well. Extremely pruritic. Additionally she has swelling and itching over her left thumb at the site of a surgery she had many years ago. She had recent right knee replacement. She was on valium and hydrocodone, but she has stopped taking those. She is now only taking tylenol, she says even taking tylenol is not normal for her. She cannot think of any other exposures. She has not tried anything for her symptoms. Related Data Home Medications Medication Instructions Recorded Confirmed cyclosporine 0.05 % eye drops in a 1 drop EACH EYE Q12H 01/21/19 03/24/19 dropperette estradiol 1 gm VAGINAL WEEKLY 01/21/19 03/24/19 hydrochlorothiazide 25 mg tablet 12.5 mg PO DAILY 01/21/19 03/24/19 pantoprazole 40 mg tablet,delayed 40 mg PO QAM 01/21/19 03/24/19 release Adult Probiotic 3,000 mmu cells PO DAILY 03/08/19 03/24/19 cholecalciferol (vitamin D3) 2,000 unit PO DAILY 03/08/19 03/24/19 potassium chloride [Klor-Con M20] 20 meq PO DAILY 03/08/19 03/24/19 Victoza 2-Surendra 1.8 mg SUBCUT DAILY 03/24/19 03/24/19 Allergies Allergy/AdvReac Type Severity Reaction Status Date / Time prochlorperazine Allergy Mild PT DOESNT Verified 03/24/19 13:09 REMEMBER flurazepam AdvReac Unknown Confusion Verified 03/24/19 13:09 tramadol AdvReac Unknown Nausea and Verified 03/24/19 13:09 Vomiting Contrast Media Allergy Severe ITCHING, Uncoded 03/24/19 13:09 SOB Review of Systems Review of Systems: All systems reviewed & are unremarkable except as noted in HPI and below Constitutional: Constitutional: Denies fever(s) ENT: Denies sore throat Cardiovascular: Cardiovascular: Denies chest pain Respiratory: Respiratory: Denies dyspnea Gastrointestinal: Gastrointestinal: Denies abdominal pain Neurologic: Denies weakness [facility] Past Medical History Medical History Anxiety Arthritis B12 deficiency Brain aneurysm BRAIN ANEURYSM WASH U.EVERY 2 YRS.JUST WATCHING Degenerative joint disease of knee Depression Elevated uric acid in blood AZIZA (generalized anxiety disorder) GERD (gastroesophageal reflux disease) Heart murmur Hx of cataract Kidney disease LITA (obstructive sleep apnea) Osteoarthritis Phlebitis Stroke Tinnitus Transient ischemic attack Varicose veins of both legs with edema Surgical History Surgical History H/O elbow surgery H/O shoulder surgery H/O toe surgery H/O wrist surgery H/O: hysterectomy History of cholecystectomy Family History Family History Father Vein disorder Grandparent Vein disorder Mother Vein disorder Social History Social History Smoking packs per day: 1 Smoking cigarettes per day: 20.0 Smoking status: Former smoker Tobacco type: cigarettes Second hand tobacco smoke exposure: No Smoking end date: 03/03/08 Alcohol intake: former Substance use: never Substance use type: does not use Additional living arrangements comments: pt lives with boyfriend Gender identity (if verbalized by the patient): Female Spiritual care concerns: No Agree to blood products: No Exam Const: General: healthy appearing, no acute distress and alert Nutritional Appearance: well nourished Orientation/consciousness: patient oriented x3 HENMT: Head: normal to inspection Resp: Effort & Inspection: normal respiratory effort Auscultation: clear to auscultation bilaterally Cardio: Rate: regular rate Rhythm: regular rhythm Skin: Other: urticaria most significant over the buttocks, scatter
[2019-04-07] MEDS: predniSONE 20 MG TABLET 60 MG PO (04:13)
[2019-04-07] MEDS: FAMOTIDINE 20 MG TABLET PO (04:13)
== END 2019-04-07 05:53 | disposition home or self-care (01) ==
PROVIDERS: Emergency Provider Emergency Medicine; PCP Family Medicine
DX: L50.9 Urticaria, unspecified (principal); E53.8 Deficiency of other specified B group vitamins; K21.9 Gastro-esophageal reflux disease without esophagitis; N28.9 Disorder of kidney and ureter, unspecified; G47.33 Obstructive sleep apnea (adult) (pediatric); Z86.73 Personal history of transient ischemic attack (TIA), and cerebral infarction without residual deficits; M17.10 Unilateral primary osteoarthritis, unspecified knee; Z87.891 Personal history of nicotine dependence
CPT/HCPCS: 99283; A9270; J7512

== ENCOUNTER 2019-04-26 11:03 | Outpatient (CLI) | payer MEDICARE, SELFPAY ==
[2019-04-26 11:41] LABS: Basophils Percent Auto 0.6 % (0.2-1.2); Eosinophils Absolute Auto 0.1 K/mm3 (0-0.3); Eosinophils Percent Auto 2.4 % (0-4.4); Hematocrit 39.2 % (37.0-47.0); Hemoglobin 12.1 g/dL (12.0-15.0); Immature Granulocyte Absolute 0.01 K/mm3 (0.00-0.031); Immature Granulocyte Percent A 0.2 % (0-0.5); Lymphocytes Absolute Auto 1.07 K/mm3 (0.9-3.2); Lymphocytes Percent Auto 21.8 % (18.3-44.2); Mean Corpuscular HGB Conc 30.9 g/dl (32-36); Mean Corpuscular Hemoglobin 29.9 pg (26-34); Mean Corpuscular Volume 96.8 fl (80-100); Mean Platelet Volume 10.3 fl (7.4-10.4); Monocytes Absolute Auto 0.4 K/mm3 (0.1-0.6); Monocytes Percent Auto 7.5 % (2.6-8.5); Neutrophils Absolute Auto 3.3 K/mm3 (1.3-6.7); Neutrophils Percent Auto 67.5 % (45.5-73.1); Platelet Count Result 154 k/mm3 (150-375); Red Blood Count 4.05 M/mm3 (4.2-5.4); White Blood Count 4.9 K/mm3 (4.5-10.0)
[2019-04-26 11:51] LABS: Hemoglobin A1C 4.8 % (<5.7)
[2019-04-26 11:53] LABS: Alanine Aminotransferase 18 U/L (4-35); Alkaline Phosphatase 64 U/L (38-126); Aspartate Amino Transferase 25 U/L (14-36); Bilirubin,Total 0.7 mg/dL (0.2-1.3); Blood Urea Nitrogen 25 mg/dL (7-17); Calcium 9.2 mg/dL (8.4-10.2); Carbon Dioxide 35 mmol/L (22-30); Chloride 91 mmol/L (98-107); Estimated Glomerular Filt Rate 50; Glucose 94 mg/dL (65-105); Potassium 3.4 mmol/L (3.4-5.0); Sodium 134 mmol/L (137-145)
== END 2019-04-26 11:04 | disposition home or self-care (01) ==
LOC: ANHLAB 11:05
PROVIDERS: PCP Family Medicine; Visit Provider Nurse Practitioner Family
DX: R73.03 Prediabetes (principal)
CPT/HCPCS: 36415; 80053; 83036; 85025

== ENCOUNTER 2019-04-28 11:31 | Outpatient (CLI) | payer MEDICARE, SELFPAY ==
--- NOTE | ~2019-04-28 | US_ITS ---
EXAMINATION: US venous doppler [facility] DATE: 04/28/2019 12:26 INDICATION: Right lower limb pain. TECHNIQUE: Grayscale ultrasound images without and with compression and Doppler ultrasound images of the bilateral lower extremity veins were obtained. COMPARISON: None. FINDINGS: The visualized portions of right common femoral vein, profunda (deep) femoral vein, femoral vein, pop liteal vein, peroneal veins, posterior tibial veins, and greater saphenous vein outflow are patent. T here is thrombus in right lesser saphenous vein. The visualized portions of left common femoral vein, profunda femoral vein, femoral vein, popliteal v ein, peroneal veins, posterior tibial veins, and greater saphenous vein outflow are patent. IMPRESSION: 1. No deep venous thrombosis. 2. Thrombus in right lesser saphenous vein, which is a superficial vein. 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
== END 2019-04-28 11:32 | disposition home or self-care (01) ==
PROVIDERS: PCP Family Medicine; Visit Provider Orthopaedic Surgery
DX: Z96.659 Presence of unspecified artificial knee joint (principal); I82.811 Embolism and thrombosis of superficial veins of right lower extremity
CPT/HCPCS: 93970

== ENCOUNTER 2019-05-07 09:03 | Outpatient (CLI) | payer MEDICARE, SELFPAY ==
--- NOTE | ~2019-05-07 | US_ITS ---
EXAMINATION:US venous doppler LE RT INDICATION:Right calf pain. TECHNIQUE: Multiple grayscale, color flow and Doppler images of the right lower extremity deep venous systems were obtained and reviewed. COMPARISON:04/28/2019 FINDINGS: The common femoral, superficial femoral and popliteal veins demonstrate normal respiratory variation, augmentation and compressibility. Color flow is also seen within the posterior tibial, pe roneal, and profunda veins. Greater saphenous vein is surgically absent. There is a complex Alex's c yst. IMPRESSION: 1: No lower extremity deep venous thrombosis. Reviewed, dictated and finalized at location B. 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
== END 2019-05-07 09:04 | disposition home or self-care (01) ==
LOC: ANHIMG 09:05
PROVIDERS: PCP Family Medicine; Visit Provider Orthopaedic Surgery
DX: M79.661 Pain in right lower leg (principal)
CPT/HCPCS: 93971

== ENCOUNTER 2019-05-07 13:17 | Emergency (ER) | payer MEDICARE, SELFPAY ==
--- NOTE | ~2019-05-07 | XR_ITS ---
XR knee RT 3V 05/07/2019 13:52 Indication: Right knee pain Procedure: 3 views right knee Comparison: Comparison to multiple prior studies sequentially, with oldest reviewed study dated 2019 Findings: There is a right total knee arthroplasty. There is a moderate joint effusion. There is prep atellar soft tissue swelling. No evidence for periprosthetic fracture or loosening. Impression: 1: Moderate joint effusion. 2: No acute fracture. Reviewed, dictated and finalized at location B. [employer]OR [employer] Impression: 1: Moderate joint effusion. 2: No acute fracture.
[2019-05-07 13:27] VITALS: BP 148/69; PULSE 92; RESP 18; TEMP 37; O2SAT 100
--- NOTE | 2019-05-07 13:30 | ED.EXTPRO ---
HPI - Extremity Problem General Chief complaint: Extremity Injury, Lower Stated complaint: Swelling to right knee Time Seen by Provider: 05/07/19 13:27 Source: patient and RN notes reviewed Mode of arrival: ambulatory Limitations: no limitations History of Present Illness HPI Narrative: Pt is a 64 y/o female who presents to the ED with c/o rt lower extremity pain and swelling. She notes that she received a rt knee replacement by Dr. Hendrix on 03/24/19. Pt states that she has been recovering well from the surgery, and notes that she has been undergoing physical therapy 3x a week for the past several weeks. She states that she has had swelling around her rt knee ever since the procedure, and notes that she began noticing increasing swelling extending into her rt calf on 04/28. Pt states that she received a doppler US of her RLE on 04/28, and notes that she was diagnosed with a DVT. She states that she was subsequently placed on Eliquis 5 mg, and notes that she is still currently taking the medication. Pt states that she received a follow-up US of her RLE this morning, and notes that it showed no sign of DVT. She currently reports pain in her rt calf, but denies any fever or chills. Pt notes that she has been taking Tylenol 1,000 mg for her symptoms. MD Complaint: extremity pain and extremity swelling Pain Consistency: constant Location: right and lower extremity Associated symptoms: denies other symptoms Context: recent surgery/procedure (rt knee replacement) and history of DVT Related Data Home Medications Medication Instructions Recorded Confirmed cyclosporine 0.05 % eye drops in a 1 drop EACH EYE Q12H 01/21/19 03/24/19 dropperette estradiol 1 gm VAGINAL WEEKLY 01/21/19 03/24/19 pantoprazole 40 mg tablet,delayed 40 mg PO QAM 01/21/19 04/09/19 release Adult Probiotic 3,000 mmu cells PO DAILY 03/08/19 03/24/19 cholecalciferol (vitamin D3) 2,000 unit PO DAILY 03/08/19 03/24/19 hydrochlorothiazide 25 mg tablet 25 mg PO DAILY tablet 04/08/19 04/08/19 Allergies Allergy/AdvReac Type Severity Reaction Status Date / Time acetaminophen Allergy Severe hives Verified 04/16/19 14:22 [From Tylenol Severe Allergy] diphenhydramine Allergy Severe hives Verified 04/16/19 14:22 [From Tylenol Severe Allergy] prochlorperazine Allergy Mild PT DOESNT Verified 04/16/19 14:22 REMEMBER flurazepam AdvReac Unknown Confusion Verified 04/16/19 14:22 tramadol AdvReac Unknown Nausea and Verified 04/16/19 14:22 Vomiting Contrast Media Allergy Severe ITCHING, Uncoded 04/16/19 14:22 SOB Review of Systems Review of Systems: All systems reviewed & are unremarkable except as noted in HPI and below Constitutional: Constitutional: Denies chills and Denies fever(s) Respiratory: Respiratory: Denies cough and Denies dyspnea Musculoskeletal: Musculoskeletal: Reports other (rt lower leg pain; swelling in rt lower leg) Neurologic: Denies headache(s) and Denies weakness PMFSH Past Medical History Medical History (Updated 05/08/19 @ 00:00 by Background Daemon) Anxiety Arthritis B12 deficiency Brain aneurysm BRAIN ANEURYSM WASH U.EVERY 2 YRS.JUST WATCHING Degenerative joint disease of knee Depression Elevated uric acid in blood AZIZA (generalized anxiety disorder) GERD (gastroesophageal reflux disease) Heart murmur Hx of cataract Kidney disease LITA (obstructive sleep apnea) Osteoarthritis Phlebitis Stroke Tinnitus Transient ischemic attack Varicose veins of both legs with edema Surgical History Surgical History H/O elbow surgery H/O shoulder surgery H/O toe surgery H/O wrist surgery H/O: hysterectomy History of cholecystectomy Hx of vascular surgery repair of varicose veins Status post right knee replacement Social History Social History Social History: Single Smoking packs per day: 1 Smoking cigarettes per day: 20.0
[2019-05-07 14:16] LABS: Basophils Percent Auto 0.3 % (0.2-1.2); Eosinophils Absolute Auto 0.1 K/mm3 (0-0.3); Eosinophils Percent Auto 1.9 % (0-4.4); Hematocrit 40.5 % (37.0-47.0); Hemoglobin 12.6 g/dL (12.0-15.0); Immature Granulocyte Absolute 0.01 K/mm3 (0.00-0.031); Immature Granulocyte Percent A 0.3 % (0-0.5); Lymphocytes Absolute Auto 1.13 K/mm3 (0.9-3.2); Mean Corpuscular HGB Conc 31.1 g/dl (32-36); Mean Corpuscular Hemoglobin 29.7 pg (26-34); Mean Corpuscular Volume 95.5 fl (80-100); Mean Platelet Volume 9.5 fl (7.4-10.4); Monocytes Absolute Auto 0.3 K/mm3 (0.1-0.6); Monocytes Percent Auto 6.8 % (2.6-8.5); Neutrophils Absolute Auto 2.2 K/mm3 (1.3-6.7); Neutrophils Percent Auto 59.7 % (45.5-73.1); Platelet Count Result 289 k/mm3 (150-375); Red Blood Count 4.24 M/mm3 (4.2-5.4); Red Cell Distribution Width 13.7 % (11.5-14.5); White Blood Count 3.7 K/mm3 (4.5-10.0)
[2019-05-07 14:29] LABS: Blood Urea Nitrogen 22 mg/dL (7-17); CRP < 0.5 mg/dL (<1.0); Calcium 9.1 mg/dL (8.4-10.2); Carbon Dioxide 31 mmol/L (22-30); Chloride 102 mmol/L (98-107); Estimated CRCL calculation 63 ml/min; Estimated Glomerular Filt Rate > 60; Glucose 110 mg/dL (65-105); Potassium 3.9 mmol/L (3.4-5.0); Sodium 139 mmol/L (137-145)
[2019-05-07 14:56] LABS: Erythrocyte Sedimentation Rate 16 mm/hr (0-20)
[2019-05-07 15:19] VITALS: BP 127/85; PULSE 74; RESP 18; TEMP 36.2; O2SAT 100
== END 2019-05-07 15:22 | disposition home or self-care (01) ==
PROVIDERS: Emergency Provider Emergency Medicine; PCP Family Medicine
DX: G89.18 Other acute postprocedural pain (principal); M25.561 Pain in right knee; M19.90 Unspecified osteoarthritis, unspecified site; E53.8 Deficiency of other specified B group vitamins; K21.9 Gastro-esophageal reflux disease without esophagitis; G47.33 Obstructive sleep apnea (adult) (pediatric); Z86.73 Personal history of transient ischemic attack (TIA), and cerebral infarction without residual deficits; N28.9 Disorder of kidney and ureter, unspecified; Z96.651 Presence of right artificial knee joint; H26.9 Unspecified cataract; Z87.891 Personal history of nicotine dependence
CPT/HCPCS: 36415; 73562; 80048; 85025; 85652; 86140; 99283

== ENCOUNTER 2019-07-09 09:03 | Outpatient (CLI) | payer MEDICARE, SELFPAY ==
--- NOTE | ~2019-07-09 | XR_ITS ---
XR shoulder RT min 2V DATE: 07/09/2019 09:24 INDICATION: Right shoulder pain TECHNIQUE: 4 views COMPARISON: None FINDINGS: There is probable resection of the lateral aspect of the right clavicle. Mild osteoarthritic spurring of the right humeral head. Moderate osteopenia. No fracture, dislocation, periosteal reaction or bone destruction of the right shoulder. Degenerative changes are evident at the cervical spine. IMPRESSION: Osteopenia Mild right glenohumeral osteoarthritis Reviewed, dictated and finalized at location A.
--- NOTE | ~2019-07-09 | XR_ITS ---
XR cervical spine 4-5V DATE: 07/09/2019 09:24 INDICATION: Chronic neck pain, back pain. No recent injury. TECHNIQUE: AP, open-mouth, lateral, swimmer views COMPARISON: 04/23/2018 cervical spine FINDINGS: C1 and C2 are normally aligned and the odontoid process is intact. There is mild degenerative disc disease and associated mild posterior subluxation at C3-4. There is mild anterolisthesis at C4-5. There is greater approximately 4-5 mm anterolisthesis at C5-6. There is mild anterolisthesis at C6-7. No fracture or dislocation or locked facet. No prevertebral soft tissue swelling. There is prominent degenerative change at the apophyseal joints throughout the cervical spine. IMPRESSION: Extensive degenerative changes Reviewed, dictated and finalized at location A.
== END 2019-07-09 09:04 | disposition home or self-care (01) ==
LOC: ANHIMG 09:10
PROVIDERS: PCP Family Medicine; Visit Provider Family Medicine
DX: M25.511 Pain in right shoulder (principal); M85.811 Other specified disorders of bone density and structure, right shoulder; M19.011 Primary osteoarthritis, right shoulder; M50.321 Other cervical disc degeneration at C4-C5 level
CPT/HCPCS: 72050; 73030

== ENCOUNTER 2019-08-02 18:15 | Outpatient (CLI) | payer MEDICARE, SELFPAY ==
--- NOTE | ~2019-08-02 | MR_ITS ---
EXAMINATION: MR shoulder RT wo con DATE: 08/02/2019 19:03 INDICATION: Right shoulder pain. TECHNIQUE: Magnetic resonance imaging (MRI) of the right shoulder was performed without intravenous c ontrast. Sequences included axial PD-weighted FS FSE, coronal oblique PD-weighted FS FSE and T2-weigh cristiana FS FSE, and sagittal oblique T2-weighted FS FSE and T1-weighted FSE. COMPARISON: Right shoulder radiographs 07/09/2019 FINDINGS: Coracoacromial arch: The acromion undersurface is flat in morphology (type I). There are likely changes of distal clavicle resection. No significant subacromial/subdeltoid bursitis. Rotator cuff: There is severe supraspinatus tendinopathy and mild infraspinatus tendinopathy. Teres minor tendon is normal. There is mild subscapularis tendinopathy. There is no asymmetric fatty atrophy of the rotato r cuff muscle bellies. There is degenerative cystic change in greater tuberosity. Biceps tendon and glenoid labrum: Biceps tendon is in bicipital groove. Intra-articular biceps tendon is normal. The glenoid labrum is normal. Fluid: There is a small glenohumeral joint effusion. Bones/cartilage: There is cartilage surface irregularity of glenoid and humeral head. There is a 2.2 cm lesion of incr eased T2-weighted signal intensity in surgical neck of proximal right humerus. There is a 2.3 cm lesi on of increased T2-weighted signal intensity in proximal diaphysis of the humerus. No endosteal scall oping. IMPRESSION: 1. Severe rotator cuff tendinopathy. No tear. 2. Mild glenohumeral joint chondrosis. 3. Lesions in proximal right humerus without radiographic correlate, likely benign lesions such as en chondromas or fibrous dysplasia. 4. Small glenohumeral joint effusion. Reviewed, dictated and finalized at location A. IMPRESSION: 1. Severe rotator cuff tendinopathy. No tear. 2. Mild glenohumeral joint chondrosis. 3. Lesions in proximal right humerus without radiographic correlate, likely sherley ign lesions such as enchondromas or fibrous dysplasia. 4. Small glenohumeral joint effusion.
== END 2019-08-02 18:16 | disposition home or self-care (01) ==
PROVIDERS: PCP Family Medicine; Visit Provider Orthopaedic Surgery
DX: M25.461 Effusion, right knee (principal)
CPT/HCPCS: 73221

== ENCOUNTER 2019-12-23 14:42 | Outpatient (CLI) | payer MEDICARE, SELFPAY ==
--- NOTE | ~2019-12-23 | XR_ITS ---
EXAMINATION: XR chest 2V DATE: 12/23/2019 14:58 INDICATION: Shortness of breath. TECHNIQUE: Frontal and lateral views of the chest were obtained. COMPARISON: None. FINDINGS: The chest demonstrates clear lungs without pneumonia, pleural effusion, or pneumothorax. Th e heart size is normal. Surgical clips in the right upper quadrant are likely from cholecystectomy. IMPRESSION: 1. No acute cardiopulmonary disease. Reviewed, dictated and finalized at location A.
== END 2019-12-23 14:43 | disposition home or self-care (01) ==
LOC: ANHIMG 14:47
PROVIDERS: PCP Family Medicine; Visit Provider Physician Assistant
DX: R06.02 Shortness of breath (principal)
CPT/HCPCS: 71046

== ENCOUNTER 2019-12-28 14:48 | Outpatient (CLI) | payer MEDICARE, SELFPAY | END 2019-12-28 14:49 | disposition home or self-care (01) | LOC: ANHAUDIO 14:50 | PROVIDERS: PCP Family Medicine; Visit Provider Otolaryngology | DX: H93.13 Tinnitus, bilateral (principal); H90.3 Sensorineural hearing loss, bilateral | CPT/HCPCS: 92557; 92567 ==

== ENCOUNTER 2020-01-01 06:59 | Outpatient (CLI) | payer MEDICARE, SELFPAY ==
[2020-01-01 07:17] LABS: Basophils Percent Auto 0.4 % (0.2-1.2); Eosinophils Absolute Auto 0.1 K/mm3 (0-0.3); Eosinophils Percent Auto 2.7 % (0-4.4); Hematocrit 42.1 % (37.0-47.0); Hemoglobin 13.6 g/dL (12.0-15.0); Immature Granulocyte Absolute 0.01 K/mm3 (0.00-0.031); Immature Granulocyte Percent A 0.2 % (0-0.5); Lymphocytes Absolute Auto 1.87 K/mm3 (0.9-3.2); Lymphocytes Percent Auto 41.4 % (18.3-44.2); Mean Corpuscular HGB Conc 32.3 g/dl (32-36); Mean Corpuscular Volume 95.9 fl (80-100); Mean Platelet Volume 9.8 fl (7.4-10.4); Monocytes Absolute Auto 0.3 K/mm3 (0.1-0.6); Monocytes Percent Auto 6.9 % (2.6-8.5); Neutrophils Absolute Auto 2.2 K/mm3 (1.3-6.7); Neutrophils Percent Auto 48.4 % (45.5-73.1); Platelet Count Result 186 k/mm3 (150-375); Red Blood Count 4.39 M/mm3 (4.2-5.4); Red Cell Distribution Width 12.7 % (11.5-14.5); White Blood Count 4.5 K/mm3 (4.5-10.0)
[2020-01-01 07:28] LABS: Hemoglobin A1C 4.9 % (<5.7)
[2020-01-01 07:35] LABS: Alanine Aminotransferase 14 U/L (4-35); Albumin Level 3.9 g/dL (3.5-5.1); Alkaline Phosphatase 45 U/L (38-126); Anion Gap 3 mmol/L (8-16); Aspartate Amino Transferase 27 U/L (14-36); Bilirubin,Total 0.4 mg/dL (0.2-1.3); Blood Urea Nitrogen 22 mg/dL (7-17); Calcium 9.4 mg/dL (8.4-10.2); Carbon Dioxide 34 mmol/L (22-30); Chloride 101 mmol/L (98-107); Cholesterol 171 mg/dL (0-200); Estimated Glomerular Filt Rate 50; Glucose 99 mg/dL (65-105); HDL Direct 64 mg/dL; Potassium 4.3 mmol/L (3.4-5.0); Sodium 138 mmol/L (137-145); Triglycerides 53 mg/dL (<150); Uric Acid 7.5 mg/dL (2.5-7.5)
[2020-01-01 07:46] LABS: LDL Cholesterol Direct 82 mg/dL
== END 2020-01-01 07:00 | disposition home or self-care (01) ==
LOC: ANHLAB 07:00
PROVIDERS: PCP Family Medicine; Visit Provider Family Medicine
DX: I10 Essential (primary) hypertension (principal); I83.813 Varicose veins of bilateral lower extremities with pain; R60.9 Edema, unspecified; R73.03 Prediabetes; E78.2 Mixed hyperlipidemia; E04.9 Nontoxic goiter, unspecified; E79.0 Hyperuricemia without signs of inflammatory arthritis and tophaceous disease
CPT/HCPCS: 36415; 80053; 80061; 83036; 84443; 84550; 85025

== ENCOUNTER 2020-03-13 14:29 | Outpatient (CLI) | payer MEDICARE, SELFPAY ==
--- NOTE | ~2020-03-13 | DEXA_ITS ---
Bone Density Report Name: Phyllis Gallegos Age: 64 Sex: Female Ethnicity: White Date of : 1955 Indication: osteopenia; height loss; hysterectomy; Referring Provider: Avani Townsend Study: Bone densitometry was performed. Exam Date: March 13, 2020 Accession number: [id number] Bone Density: Region BMD T-score Z-score Classification AP Spine (L1-L4) 0.929 -1.1 0.7 Osteopenia Femoral Neck (Left) 0.717 -1.2 0.3 Osteopenia Total Hip (Left) 0.740 -1.7 -0.4 Osteopenia Total Hip Bilateral Avg 0.714 -1.9 -0.6 Osteopenia Femoral Neck (Right) 0.609 -2.2 -0.7 Osteopenia Total Hip (Right) 0.687 -2.1 -0.9 Osteopenia World Health Organization criteria for BMD impression classify patients as: Normal (T-score at or above -1.0), Osteopenia (T-score between -1.0 and -2.5), or Osteoporosis (T-score at or below -2.5). 10-year Fracture Risk(1): Major Osteoporotic Fracture 11% Hip Fracture 1.7% Reported Risk Factors: [place] (), Neck BMD=0.609, BMI=29.4 (1) FRAX(R) Version 3.08. Fracture probability calculated for an untreated patient. Fracture probability may be lower if the patient has received treatment. Previous Exams: Region Exam Age BMD T-score BMD Change BMD Change Date g/cm2 vs Baseline vs Previous AP Spine(L1-L4) 03/13/2020 64 0.929 -1.1 -0.009(-0.9%) 0.000(0.1%) 01/16/2017 61 0.928 -1.1 -0.009(-1.0%) -0.009(-1.0%) 08/17/2014 59 0.938 -1.0 Total Hip(Left) 03/13/2020 64 0.740 -1.7 -0.099(-11.8%) -0.047(-6.0%)* 01/16/2017 61 0.788 -1.3 -0.051(-6.1%)* -0.051(-6.1%)* 08/17/2014 59 0.839 -0.8 Total Hip(Right) 03/13/2020 64 0.687 -2.1 -0.044(-6.1%)* -0.004(-0.5%) 01/16/2017 61 0.691 -2.1 -0.041(-5.5%)* -0.041(-5.5%)* 08/17/2014 59 0.731 -1.7 *Denotes significance at 95% confidence level, LSC for AP Spine = 0.022 g/cm2, LSC for Total Hip = 0.027 g/cm2 Clinical Information Provided by Patient: Has the following medical conditions: Hysterectomy Patient maximum height was 68 Menopause Age: 30 Drinks caffeinated beverages Onset of menses at age 13 Number of children 0 Impression: The patient has low bone mass, based on the Right Femoral Neck T-score. The patient has an estimated ten-year risk of hip fracture of 1.7% and an estimated ten-year risk of major fracture of 11%, based on the WHO FRAX algorithm. The BMD for the Total Hip(Left) decreased, changing by -6.0% since the last DXA ex
--- NOTE | ~2020-03-13 | MM_ITS ---
EXAMINATION: MM screening [facility] BI w devonte HISTORY: Screening TECHNIQUE: Craniocaudal and mediolateral oblique 3-D tomosynthesis images were obtained and synthetic 2-D images were generated. CAD analysis was submitted and interpreted. COMPARISON: Comparison to multiple prior studies sequentially, with oldest reviewed study dated 09/16. BREAST PARENCHYMAL COMPOSITION: There are scattered areas of fibroglandular density. FINDINGS: There is no evidence of suspicious mass, calcification, or architectural distortion to sugg est malignancy in either breast. There has been no suspicious interval change. IMPRESSION: 1. No mammographic evidence of malignancy. 2. Recommend routine screening mammography in one year. BI-RADS Category 1: Negative. Reviewed, dictated and finalized at location A. 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
== END 2020-03-13 14:30 | disposition home or self-care (01) ==
LOC: ANHIMG 14:31
PROVIDERS: PCP Family Medicine; Visit Provider Family Medicine
DX: Z12.31 Encounter for screening mammogram for malignant neoplasm of breast (principal); Z78.0 Asymptomatic menopausal state; M16.0 Bilateral primary osteoarthritis of hip
CPT/HCPCS: 77063; 77067; 77080

== ENCOUNTER → 2020-05-16 00:24 | Outpatient (CLI) | payer MEDICARE, SELFPAY ==
[2020-05-16 18:32] LABS: SARS-CoV-2 RNA PCR Negative
== END ==
PROVIDERS: PCP Family Medicine; Visit Provider Internal Medicine Gastroenterology
DX: Z01.812 Encounter for preprocedural laboratory examination (principal); Z20.822 Contact with and (suspected) exposure to COVID-19
CPT/HCPCS: C9803; U0003; U0005

== ENCOUNTER → 2020-05-30 00:33 | Outpatient (CLI) | payer MEDICARE, SELFPAY ==
[2020-05-30 18:31] LABS: SARS-CoV-2 RNA PCR Negative
== END ==
PROVIDERS: PCP Family Medicine; Visit Provider Internal Medicine Gastroenterology
DX: Z01.812 Encounter for preprocedural laboratory examination (principal); Z20.822 Contact with and (suspected) exposure to COVID-19
CPT/HCPCS: C9803; U0003; U0005

== ENCOUNTER 2020-06-02 01:37 | Day surgery (SDC) | payer MEDICARE, SELFPAY ==
--- NOTE | 2020-05-24 13:31 | PC.NURSE ---
Patient denies any changes in health history. Medication list updated. Updated on COVID swabbing day and the day of procedure arrival time and visitor policy.
[2020-06-02 12:48] VITALS: BP 122/64; PULSE 79; RESP 16; TEMP 36.9; O2SAT 100
[2020-06-02] MEDS: LACTATED RINGERS 1,000 ML 150 ML IV CONT (12:51)
--- NOTE | 2020-06-02 13:02 | WPDANESEPPF ---
Anes - Initial Pre Proc Eval Procedure: Operation Date: 06/02/20 14:00 Proposed Procedures p Esophagogastroduodenoscopy & Colonoscopy - Wenceslao Valdivia MD s [facility] Hemorrhoid Treatment - Wenceslao Valdivia MD Date/Time: 06/02/20 13:02 Surgeon: Wenceslao Valdivia MD Pre Op Diagnosis: abn stool, GERD, hemorrhoids Patient Data Age: 65 Gender: F Height: 5 ft 7 in Weight: 84.5 kg Last Vital Signs Temp 98.5 F 06/02/20 12:48 Pulse 79 06/02/20 12:48 Resp 16 06/02/20 12:48 BP 122/64 06/02/20 12:48 Pulse Ox 100 06/02/20 12:48 Allergies Allergy/AdvReac Type Severity Reaction Status Date / Time diphenhydramine Allergy Severe hives Verified 06/02/20 12:45 [From Tylenol Severe Allergy] prochlorperazine Allergy Mild PT DOESNT Verified 06/02/20 12:45 REMEMBER bisacodyl Allergy hives Verified 06/02/20 12:45 [From Dulcolax (bisacodyl)] flurazepam AdvReac Unknown Confusion Verified 06/02/20 12:45 tramadol AdvReac Unknown Nausea and Verified 06/02/20 12:45 Vomiting Contrast Media Allergy Severe ITCHING, Uncoded 06/02/20 12:45 SOB Home Medications Medication Instructions Recorded Confirmed Type cholecalciferol (vitamin D3) 2,000 unit PO DAILY 03/08/19 06/02/20 History pantoprazole 20 mg tablet,delayed 20 mg PO BID 12/14/19 06/02/20 History release triamterene 37.5 1 tablet PO QAM #90 tablet 12/31/19 06/02/20 Rx mg-hydrochlorothiazide 25 mg tablet furosemide 20 mg tablet 20 mg PO QAM #90 tablet 05/22/20 06/02/20 Rx vitamin B complex [B 1 tablet PO DAILY 05/24/20 06/02/20 History Complex-Vitamin B12] amoxicillin 500 mg capsule 500 mg PO Q12H #8 cap 05/31/20 06/02/20 Rx Patient hx anesthesia problems: none Family hx anesthesia problems: none PMFSH Past Medical History Medical History Anxiety Arthritis B12 deficiency Blood in stool Brain aneurysm BRAIN ANEURYSM WASH U.EVERY 2 YRS.JUST WATCHING Degenerative joint disease of knee Depression Elevated uric acid in blood AZIZA (generalized anxiety disorder) GERD (gastroesophageal reflux disease) Heart murmur Hemorrhoid Hx of cataract Kidney disease Left shoulder pain Nausea & vomiting LITA (obstructive sleep apnea) Osteoarthritis Phlebitis Rotator cuff tendinitis Sleep apnea Stroke Tinnitus Transient ischemic attack Varicose veins of both legs with edema Surgical History Surgical History H/O elbow surgery H/O shoulder surgery H/O toe surgery H/O wrist surgery H/O: hysterectomy History of cholecystectomy Hx of vascular surgery repair of varicose veins Status post right knee replacement Family History Family History Father Vein disorder Grandparent Vein disorder Mother Vein disorder Sibling Breast cancer DCIS, dx in 02/17/20 Social History Social History (Updated 05/23/20 @ 14:20 by Tali Chambers) Social History: Single. Pt lives with boyfriend since 2008 Smoking packs per day: 1 Smoking cigarettes per day: 20.0 Years smoked: 10 Smoking pack-years: 10.00 Smoking status: Former smoker Tobacco type: cigarettes Second hand tobacco smoke exposure: No Smoking end date: 03/03/08 Alcohol intake: never Substance use: never Substance use type: does not use Living arrangements: with family Additional living arrangements comments: pt lives with boyfriend Gender identity (if verbalized by the patient): Female Spiritual care concerns: No Agree to blood products: No Anes - Eval Final PreProcedure Day of Procedure 06/02/20 13:02 Patient weight: overweight Heart: regular rate and rhythm Lungs: clear to auscultation Airway: Mallampati scale class III Neurological: alert and oriented Last oral intake: >/= 8 hours ASA classification: IV Emergent: no Anesthetic augie
--- NOTE | 2020-06-02 14:01 | PM.HPGS ---
History of Present Illness History of Present Illness Consent: Risks, benefits, and alternatives have been discussed and questions answered. Patient agrees to proceed with procedure. Chief complaint: abn stool, GERD, hemorrhoids Narrative: Phyllis Gallegos is a 65 year old female with gerd on protonix, 2015 had eloisa. Also intermittent rectal bleeding with history of hemorrhoids Review of Systems Constitutional: Constitutional: Denies headache(s) and Denies weakness Eyes: Eyes: Denies blurry vision ENT: Reports Normal hearing present, Denies headache(s) and Denies neck pain Cardiovascular: Cardiovascular: Denies chest pain and Denies dyspnea Respiratory: Respiratory: Denies dyspnea Gastrointestinal: Gastrointestinal: Reports no additional gastrointestinal complaints Genitourinary: Genitourinary: Denies dysuria Musculoskeletal: Musculoskeletal: Denies neck pain Integumentary/Breasts: Skin/Breast: Denies dry skin Neurologic: Reports Normal hearing present, Denies headache(s) and Denies weakness Psychiatric: Psychiatric: Denies anxiety Endocrine: Endocrine: Denies change in body appearance Hematologic/Lymphatic: Hematologic/Lymphatic: Denies easy bleeding Allergic/Immunologic: Allergic/Immunologic: Denies urticaria PMFSH Past Medical History Medical History Anxiety Arthritis B12 deficiency Blood in stool Brain aneurysm BRAIN ANEURYSM WASH U.EVERY 2 YRS.JUST WATCHING Degenerative joint disease of knee Depression Elevated uric acid in blood AZIZA (generalized anxiety disorder) GERD (gastroesophageal reflux disease) Heart murmur Hemorrhoid Hx of cataract Kidney disease Left shoulder pain Nausea & vomiting LITA (obstructive sleep apnea) Osteoarthritis Phlebitis Rotator cuff tendinitis Sleep apnea Stroke Tinnitus Transient ischemic attack Varicose veins of both legs with edema Surgical History Surgical History H/O elbow surgery H/O shoulder surgery H/O toe surgery H/O wrist surgery H/O: hysterectomy History of cholecystectomy Hx of vascular surgery repair of varicose veins Status post right knee replacement Family History Family History Father Vein disorder Grandparent Vein disorder Mother Vein disorder Sibling Breast cancer DCIS, dx in 02/17/20 Social History Social History (Updated 05/23/20 @ 14:20 by Tali Chambers) Social History: Single. Pt lives with boyfriend since 2008 Smoking packs per day: 1 Smoking cigarettes per day: 20.0 Years smoked: 10 Smoking pack-years: 10.00 Smoking status: Former smoker Tobacco type: cigarettes Second hand tobacco smoke exposure: No Smoking end date: 03/03/08 Alcohol intake: never Substance use: never Substance use type: does not use Living arrangements: with family Additional living arrangements comments: pt lives with boyfriend Gender identity (if verbalized by the patient): Female Spiritual care concerns: No Agree to blood products: No Meds Home Medications and Allergies Home Medications Medication Instructions Recorded Confirmed Type cholecalciferol (vitamin D3) 2,000 unit PO DAILY 03/08/19 06/02/20 History pantoprazole 20 mg tablet,delayed 20 mg PO BID 12/14/19 06/02/20 History release triamterene 37.5 1 tablet PO QAM #90 tablet 12/31/19 06/02/20 Rx mg-hydrochlorothiazide 25 mg tablet furosemide 20 mg tablet 20 mg PO QAM #90 tablet 05/22/20 06/02/20 Rx vitamin B complex [B 1 tablet PO DAILY 05/24/20 06/02/20 History Complex-Vitamin B12] amoxicillin 500 mg capsule 500 mg PO Q12H #8 cap 05/31/20 06/02/20 Rx Allergies Allergy/AdvReac Type Severity Reaction Status Date / Time diphenhydramine Allergy Severe hives Verified 06/02/20 12:45 [From Tylenol Severe Allergy] prochlorperazine Allergy Mild PT DOESNT Verbrandi
[2020-06-02] MEDS: BENZOCAINE (*SP) 60 ML SPRAY CAN (HURRICAINE) 1 SPRAY MUCOUS MEM (14:07)
[2020-06-02 14:40] VITALS: BP 90/48; PULSE 64; RESP 14; O2SAT 100
--- NOTE | 2020-06-02 14:47 | PM.PROC ---
Procedure Note - Detailed Date of procedure: 06/02/20 Pre-op diagnosis: abn stool, GERD, hemorrhoids internal hemorrhoids Post-op diagnosis: same Procedure performed: Infrared coagulation of hemorrhoids Description of procedure: soon after I finished colonoscopy, I introduced anoscope and then inserted IRC probe. Noted small internal hemorrhoids at 4-6 o'clock position and treated 1.5 seconds each time x5. No anal fissure, no bleeding. Surgeon: Wenceslao Valdivia MD Complications: No immediate complications Condition: stable
[2020-06-02 14:50] VITALS: BP 113/60; PULSE 68; RESP 19; O2SAT 98
[2020-06-02 15:00] VITALS: BP 112/66; PULSE 66; RESP 21; O2SAT 97
== END 2020-06-02 15:15 | disposition home or self-care (01) ==
PROVIDERS: PCP Family Medicine; Visit Provider Internal Medicine Gastroenterology
PROC: 0DJ08ZZ Inspection of Upper Intestinal Tract, Via Natural or Artificial Opening Endoscopic (ICD-10-PCS; CPT 43235; principal; 2020-06-02 14:00)
PROC: (CPT 46930; 2020-06-02 14:00)
DX: K92.1 Melena (principal); K21.00 Gastro-esophageal reflux disease with esophagitis, without bleeding; K44.9 Diaphragmatic hernia without obstruction or gangrene; K29.50 Unspecified chronic gastritis without bleeding; K57.30 Diverticulosis of large intestine without perforation or abscess without bleeding; K64.8 Other hemorrhoids; R11.0 Nausea; F41.9 Anxiety disorder, unspecified; E53.8 Deficiency of other specified B group vitamins; Z82.49 Family history of ischemic heart disease and other diseases of the circulatory system; R01.1 Cardiac murmur, unspecified; G47.33 Obstructive sleep apnea (adult) (pediatric); I80.9 Phlebitis and thrombophlebitis of unspecified site; G47.30 Sleep apnea, unspecified; Z82.3 Family history of stroke; Z87.891 Personal history of nicotine dependence; F41.8 Other specified anxiety disorders
CPT/HCPCS: 43239; 45378; 88305; C9803; J2704; J7120; U0003; U0005

== ENCOUNTER 2020-07-20 16:07 | Outpatient (CLI) | payer MEDICARE, SELFPAY ==
--- NOTE | ~2020-07-20 | MR_ITS ---
EXAMINATION: MR shoulder LT wo con DATE: 07/20/2020 17:03 INDICATION: Left shoulder pain. TECHNIQUE: Magnetic resonance imaging (MRI) of the left shoulder was performed without intravenous co ntrast. Sequences included axial PD-weighted FS FSE, coronal oblique PD-weighted FS FSE and T2-weight ed FS FSE, and sagittal oblique T2-weighted FS FSE and T1-weighted FSE. COMPARISON: Left shoulder radiographs 05/23/2020 FINDINGS: Coracoacromial arch: The acromion undersurface is curved in morphology (type II). There is severe acromioclavicular joint osteoarthritis including inferior directed osteophytes. There is mild subacromial/subdeltoid bursitis . Rotator cuff: There is moderate supraspinatus tendinopathy and mild infraspinatus tendinopathy. Teres minor tendon is normal. There is mild subscapularis tendinopathy. No tear. There is no asymmetric fatty atrophy of the rotator cuff muscle bellies. There is bone marrow edema in greater tuberosity. Biceps tendon and glenoid labrum: Biceps tendon is in bicipital groove. There is mild intra-articular biceps tendinopathy. There is deg eneration of the labrum without well-defined tear. Fluid: There is a small glenohumeral joint effusion. Bones/cartilage: There is deep partial thickness cartilage loss of central glenoid. There is shallow partial-thickness cartilage loss of humeral head. IMPRESSION: 1. Moderate rotator cuff tendinopathy. No tear. 2. Moderate glenohumeral joint chondrosis. 3. Severe acromioclavicular joint osteoarthritis. 4. Mild subacromial/subdeltoid bursitis. 5. Small glenohumeral joint effusion. Reviewed, dictated and finalized at location A.
== END 2020-07-20 16:08 | disposition home or self-care (01) ==
PROVIDERS: PCP Family Medicine; Visit Provider Nurse Practitioner Family
DX: M19.012 Primary osteoarthritis, left shoulder (principal); M75.52 Bursitis of left shoulder; M25.412 Effusion, left shoulder
CPT/HCPCS: 73221

== ENCOUNTER 2020-09-12 09:26 | Outpatient (CLI) | payer MEDICARE, SELFPAY ==
--- NOTE | 2020-09-12 11:00 | NEURO_ITS ---
Impression: # Complains of pain in upper extremities and hands. History of ulnar nerve surgery in the past and osteoarthritis. # No Carpal Tunnel Syndrome or ulnar neuropathy. # Abnormal needle/EMG exam that is neurogenic but no acute changes. # Findings consistent with burnout neurogenic changes. Nerve Conduction Studies Anti Sensory Summary Table Stim Site NR Peak (ms) P-T Amp (?V) Site1 Site2 Delta-P (ms) Dist (cm) Cy (m/s) Left Median Anti Sensory (2-3nd Digit) Wrist 3.7 30.1 Wrist 2-3nd Digit 3.7 14.0 38 Wrist 3.6 36.7 Wrist 2-3nd Digit 3.7 14.0 38 Right Median Anti Sensory (2-3nd Digit) Wrist 3.3 40.4 Wrist 2-3nd Digit 3.3 14.0 42 Wrist 3.3 35.1 Wrist 2-3nd Digit 3.3 14.0 42 Left Radial Anti Sensory (Base 1st Digit) Wrist 2.4 17.5 Wrist Base 1st Digit 2.4 0.0 Right Radial Anti Sensory (Base 1st Digit) Wrist 2.6 18.3 Wrist Base 1st Digit 2.6 0.0 Left Ulnar Anti Sensory (5th Digit) Wrist 2.9 29.6 Wrist 5th Digit 2.9 14.0 48 Right Ulnar Anti Sensory (5th Digit) Wrist 2.9 28.3 Wrist 5th Digit 2.9 14.0 48 Motor Summary Table Stim Site NR Onset (ms) O-P Amp (mV) Site1 Site2 Delta-0 (ms) Dist (cm) Cy (m/s) Left Median Motor (Abd Poll Brev) Wrist 3.8 1.0 Elbow Wrist 4.6 26.0 57 Elbow 8.4 1.6 Right Median Motor (Abd Poll Brev) Wrist 3.4 6.7 Elbow Wrist 4.9 29.0 59 Elbow 8.3 3.6 Left Ulnar Motor (Abd Dig Minimi) Wrist 2.6 4.8 A Elbow Wrist 5.0 29.0 58 A Elbow 7.6 4.0 Right Ulnar Motor (Abd Dig Minimi) Wrist 2.6 4.2 A Elbow Wrist 5.0 30.0 60 A Elbow 7.6 3.2 F Wave Studies NR F-Lat (ms) L-R F-Lat (ms) Left Median (Mrkrs) (Abd Poll Brev) 28.73 0.27 Right Median (Mrkrs) (Abd Poll Brev) 29.01 0.27 Left Ulnar (Mrkrs) (Abd Dig Min) 27.22 0.85 Right Ulnar (Mrkrs) (Abd Dig Min) 28.07 0.85 EMG Side Muscle Nerve Root Ins Act Fibs Amp Dur Recrt Comment Right 1stDorInt Ulnar C8-T1 Nml Nml Nml >12ms Reduced Right Ext Indicis Radial (Post Int) C7-8 Nml Nml Nml Nml Reduced Right Ext Digitorum Radial (Post Int) C7-8 Nml Nml Nml Nml Nml Right BrachioRad Radial C5-6 Nml Nml Nml Nml Nml Right PronatorTeres Median C6-7 Nml Nml Nml Nml Reduced Right Abd Poll Brev Median C8-T1 Nml Nml Nml >12ms Reduced Left 1stDorInt Ulnar C8-T1 Nml Nml Nml >12ms Reduced Left Ext Indicis Radial (Post Int) C7-8 Nml Nml Nml Nml Reduced Left Ext Digitorum Radial (Post Int) C7-8 Nml Nml Nml Nml Nml Left BrachioRad Radial C5-6 Nml Nml Nml Nml Nml Left PronatorTeres Median C6-7 Nml Nml Nml Nml Reduced Left Abd Poll Brev Median C8-T1 Nml Nml Nml >12ms Reduced Right ABD Dig Min Ulnar C8-T1 Nml Nml Nml >12ms Reduced Right Biceps Musculocut C5-6 Nml Nml Nml Nml Nml Right Triceps Radial C6-7-8 Nml Nml Nml Nml Nml Left ABD Dig Min Ulnar C8-T1 Nml Nml Nml >12ms Reduced Left Biceps Musculocut C5-6 Nml Nml Nml Nml Nml Left Triceps Radial C6-7-8 Nml Nml Nml Nml Nml MTDD
== END 2020-09-12 09:27 | disposition home or self-care (01) ==
LOC: ANHNEURO 09:31
PROVIDERS: PCP Family Medicine; Visit Provider Nurse Practitioner Family
DX: R20.0 Anesthesia of skin (principal); R94.131 Abnormal electromyogram [EMG]
CPT/HCPCS: 95886; 95911

== ENCOUNTER 2020-10-11 06:24 | Day surgery (SDC) | payer MEDICARE, SELFPAY ==
[2020-10-02 14:03] VITALS: BMI 30.4
--- NOTE | 2020-10-10 17:34 | WPDANESEPP ---
Anes - Eval Pre Procedure Procedure: Operation Date: 10/11/20 07:30 Proposed Procedures p Esophagogastroduodenoscopy - Wenceslao Valdivia MD Date/Time: 10/10/20 17:34 Pre Op Diagnosis: esophagitis Patient Data Age: 65 Gender: F Height: 1.7 m Weight: 88 kg Allergies Allergy/AdvReac Type Severity Reaction Status Date / Time prochlorperazine Allergy Mild PT DOESNT Verified 10/02/20 13:59 REMEMBER flurazepam AdvReac Unknown Confusion Verified 10/02/20 13:59 tramadol AdvReac Unknown Nausea and Verified 10/02/20 13:59 Vomiting Contrast Media Allergy Severe ITCHING, Uncoded 10/02/20 13:59 SOB Home Medications Medication Instructions Recorded Confirmed Type cholecalciferol (vitamin D3) 2,000 unit PO DAILY 03/08/19 10/02/20 History vitamin B complex [B 1 tablet PO DAILY 05/24/20 10/02/20 History Complex-Vitamin B12] pantoprazole 20 mg tablet,delayed 40 mg PO BID 30 Days #120 tablet 06/02/20 10/02/20 Rx release estradiol 1 appful VAGINAL 2XW 90 Days #42.5 06/06/20 10/02/20 Rx g melatonin 5 mg tablet 5 mg PO QHS PRN 07/17/20 10/02/20 History furosemide 20 mg tablet 20 mg PO QAM #90 tablet 08/13/20 10/02/20 Rx triamterene 37.5 1 tablet PO QAM #90 tablet 08/20/20 10/02/20 Rx mg-hydrochlorothiazide 25 mg tablet amoxicillin 500 mg capsule 500 mg PO ONCE #8 cap 10/03/20 Rx Patient hx anesthesia problems: none Family hx anesthesia problems: none PMFSH Past Medical History Medical History (Updated 07/17/20 @ 16:59 by Ariana Duong PA-C) Anxiety Arthritis B12 deficiency Blood in stool Brain aneurysm BRAIN ANEURYSM WASH U.EVERY 2 YRS.JUST WATCHING Degenerative joint disease of knee Depression Elevated uric acid in blood AZIZA (generalized anxiety disorder) GERD (gastroesophageal reflux disease) Heart murmur Hemorrhoid Hx of cataract Kidney disease Left shoulder pain Nausea & vomiting Numbness and tingling in both hands Numbness and tingling of both upper extremities LITA (obstructive sleep apnea) Osteoarthritis Phlebitis Rotator cuff tear Rotator cuff tendinitis Sleep apnea Stroke Tinnitus Transient ischemic attack Varicose veins of both legs with edema Surgical History Surgical History H/O elbow surgery H/O shoulder surgery H/O toe surgery H/O wrist surgery H/O: hysterectomy History of cholecystectomy History of [place] fundoplication Hx of vascular surgery repair of varicose veins Status post right knee replacement Family History Family History Father Vein disorder Grandparent Vein disorder Mother Vein disorder Sibling Breast cancer DCIS, dx in 02/17/20 Social History Social History (Updated 07/17/20 @ 14:16 by Leona Muro CMA) Social History: Single. Pt lives with boyfriend since 2008 Smoking packs per day: 1 Smoking cigarettes per day: 20.0 Years smoked: 8 Smoking pack-years: 8.00 Smoking status: Former smoker Tobacco type: cigarettes Second hand tobacco smoke exposure: No Smoking end date: 03/03/08 Alcohol intake: never Alcohol use details: rarely Substance use: never Substance use type: does not use Additional living arrangements comments: pt lives with boyfriend Gender identity (if verbalized by the patient): Female Spiritual care concerns: No Agree to blood products: No Exam Day of Procedure 10/10/20 17:34
[2020-10-11 06:24] VITALS: BMI 30.8
[2020-10-11 06:26] VITALS: BP 109/61; PULSE 69; RESP 18; TEMP 36.6; O2SAT 99
[2020-10-11] MEDS: LACTATED RINGERS 1,000 ML 150 ML IV CONT (06:40)
--- NOTE | 2020-10-11 06:44 | P.PNAN_ITS ---
Anes - Eval Final PreProcedure Day of Procedure 10/11/20 06:44 Patient weight: obese Heart: regular rate and rhythm Lungs: clear to auscultation Airway: Mallampati scale class II Neurological: alert and oriented Last oral intake: >/= 8 hours ASA classification: III Emergent: no Anesthetic plan: proceed Anesthesia type and monitoring: general GIVS and standard monitoring Informed Consent: The patient's anesthetic plan and its attendant risks and b enefits were discussed with the patient/family/POA. Questions were solicited and answers provided to the satisfaction of the patient/family/POA.
--- NOTE | 2020-10-11 07:28 | PM.HPGS ---
History of Present Illness History of Present Illness Consent: Risks, benefits, and alternatives have been discussed and questions answered. Patient agrees to proceed with procedure. Chief complaint: esophagitis Narrative: Phyllis Gallegos is a 65 year old female with ulcerated esophagitis now taking protonix bid, here to assess healing. Review of Systems Constitutional: Constitutional: Denies headache(s) and Denies weakness Eyes: Eyes: Denies blurry vision ENT: Reports Normal hearing present, Denies headache(s) and Denies neck pain Cardiovascular: Cardiovascular: Denies chest pain and Denies dyspnea Respiratory: Respiratory: Denies dyspnea Gastrointestinal: Gastrointestinal: Reports no additional gastrointestinal complaints Genitourinary: Genitourinary: Denies dysuria Musculoskeletal: Musculoskeletal: Denies neck pain Integumentary/Breasts: Skin/Breast: Denies dry skin Neurologic: Reports Normal hearing present, Denies headache(s) and Denies weakness Psychiatric: Psychiatric: Denies anxiety Endocrine: Endocrine: Denies change in body appearance Hematologic/Lymphatic: Hematologic/Lymphatic: Denies easy bleeding Allergic/Immunologic: Allergic/Immunologic: Denies urticaria PMFSH Past Medical History Medical History (Updated 07/17/20 @ 16:59 by Ariana Duong PA-C) Anxiety Arthritis B12 deficiency Blood in stool Brain aneurysm BRAIN ANEURYSM WASH U.EVERY 2 YRS.JUST WATCHING Degenerative joint disease of knee Depression Elevated uric acid in blood AZIZA (generalized anxiety disorder) GERD (gastroesophageal reflux disease) Heart murmur Hemorrhoid Hx of cataract Kidney disease Left shoulder pain Nausea & vomiting Numbness and tingling in both hands Numbness and tingling of both upper extremities LITA (obstructive sleep apnea) Osteoarthritis Phlebitis Rotator cuff tear Rotator cuff tendinitis Sleep apnea Stroke Tinnitus Transient ischemic attack Varicose veins of both legs with edema Surgical History Surgical History H/O elbow surgery H/O shoulder surgery H/O toe surgery H/O wrist surgery H/O: hysterectomy History of cholecystectomy History of [place] fundoplication Hx of vascular surgery repair of varicose veins Status post right knee replacement Family History Family History Father Vein disorder Grandparent Vein disorder Mother Vein disorder Sibling Breast cancer DCIS, dx in 02/17/20 Social History Social History (Updated 07/17/20 @ 14:16 by Leona Muro CMA) Social History: Single. Pt lives with boyfriend since 2008 Smoking packs per day: 1 Smoking cigarettes per day: 20.0 Years smoked: 8 Smoking pack-years: 8.00 Smoking status: Former smoker Tobacco type: cigarettes Second hand tobacco smoke exposure: No Smoking end date: 03/03/08 Alcohol intake: never Alcohol use details: rarely Substance use: never Substance use type: does not use Living arrangements: alone Additional living arrangements comments: pt lives with boyfriend Gender identity (if verbalized by the patient): Female Spiritual care concerns: No Agree to blood products: No Meds Home Medications and Allergies Home Medications Medication Instructions Recorded Confirmed Type cholecalciferol (vitamin D3) 2,000 unit PO DAILY 03/08/19 10/02/20 History vitamin B complex [B 1 tablet PO DAILY 05/24/20 10/02/20 History Complex-Vitamin B12] pantoprazole 20 mg tablet,delayed 40 mg PO BID 30 Days #120 tablet 06/02/20 10/02/20 Rx release estradiol 1 appful VAGINAL 2XW 90 Days #42.5 06/06/20 10/02/20 Rx g melatonin 5 mg tablet 5 mg PO QHS PRN 07/17/20 10/02/20 History furosemide 20 mg tablet 20 mg PO QAM #90 tablet 08/13/20 10/02/20 Rx triamterene 37.5 1 tablet PO QAM #90 tablet 08/20/20 10/02/20 Rx mg-hydrochlorothiazide 25 mg
[2020-10-11 07:51] VITALS: BP 91/57; PULSE 73; RESP 23; O2SAT 99
[2020-10-11 08:01] VITALS: BP 113/66; PULSE 69; RESP 19; O2SAT 99
[2020-10-11 08:11] VITALS: BP 117/73; PULSE 64; RESP 19; O2SAT 99
== END 2020-10-11 08:22 | disposition home or self-care (01) ==
PROVIDERS: PCP Family Medicine; Visit Provider Internal Medicine Gastroenterology
PROC: 0DJ08ZZ Inspection of Upper Intestinal Tract, Via Natural or Artificial Opening Endoscopic (ICD-10-PCS; CPT 43235; principal; 2020-10-11 07:30)
DX: K21.00 Gastro-esophageal reflux disease with esophagitis, without bleeding (principal); K44.9 Diaphragmatic hernia without obstruction or gangrene; K22.2 Esophageal obstruction; K22.10 Ulcer of esophagus without bleeding; E53.8 Deficiency of other specified B group vitamins; I67.1 Cerebral aneurysm, nonruptured; F41.1 Generalized anxiety disorder; F32.9 Major depressive disorder, single episode, unspecified; G47.33 Obstructive sleep apnea (adult) (pediatric); M19.90 Unspecified osteoarthritis, unspecified site; Z86.73 Personal history of transient ischemic attack (TIA), and cerebral infarction without residual deficits; Z87.891 Personal history of nicotine dependence
CPT/HCPCS: 43249; 88305; C1726; J7120

== ENCOUNTER 2020-10-23 09:19 | Outpatient (CLI) | payer MEDICARE, SELFPAY ==
[2020-10-23 10:22] LABS: Basophils Percent Auto 0.5 % (0.2-1.2); Eosinophils Absolute Auto 0.2 K/mm3 (0-0.3); Eosinophils Percent Auto 2.9 % (0-4.4); Hematocrit 43.7 % (37.0-47.0); Hemoglobin 14.1 g/dL (12.0-15.0); Immature Granulocyte Absolute 0.02 K/mm3 (0.00-0.031); Immature Granulocyte Percent A 0.4 % (0-0.5); Lymphocytes Absolute Auto 1.42 K/mm3 (0.9-3.2); Lymphocytes Percent Auto 25.3 % (18.3-44.2); Mean Corpuscular HGB Conc 32.3 g/dl (32-36); Mean Corpuscular Hemoglobin 29.4 pg (26-34); Mean Corpuscular Volume 91.2 fl (80-100); Mean Platelet Volume 9.9 fl (7.4-10.4); Monocytes Absolute Auto 0.5 K/mm3 (0.1-0.6); Monocytes Percent Auto 8.6 % (2.6-8.5); Neutrophils Absolute Auto 3.5 K/mm3 (1.3-6.7); Neutrophils Percent Auto 62.3 % (45.5-73.1); Platelet Count Result 215 k/mm3 (150-375); Red Blood Count 4.79 M/mm3 (4.2-5.4); Red Cell Distribution Width 12.6 % (11.5-14.5); White Blood Count 5.6 K/mm3 (4.5-10.0)
[2020-10-23 10:30] LABS: Alanine Aminotransferase 16 U/L (4-35); Albumin Level 4.3 g/dL (3.5-5.1); Alkaline Phosphatase 49 U/L (38-126); Anion Gap 6 mmol/L (8-16); Aspartate Amino Transferase 28 U/L (14-36); Bilirubin,Total 0.6 mg/dL (0.2-1.3); Blood Urea Nitrogen 36 mg/dL (7-17); Calcium 9.8 mg/dL (8.4-10.2); Carbon Dioxide 36 mmol/L (22-30); Chloride 94 mmol/L (98-107); Cholesterol 210 mg/dL (0-200); Estimated Glomerular Filt Rate 41; Glucose 100 mg/dL (65-110); HDL Direct 73 mg/dL; Potassium 3.1 mmol/L (3.4-5.0); Sodium 136 mmol/L (137-145); Triglycerides 93 mg/dL (<150)
[2020-10-23 10:41] LABS: LDL Cholesterol Direct 95 mg/dL
[2020-10-23 11:16] LABS: Hemoglobin A1C 5.4 % (<5.7)
== END 2020-10-23 09:20 | disposition home or self-care (01) ==
PROVIDERS: PCP Family Medicine; Visit Provider Family Medicine
DX: F41.9 Anxiety disorder, unspecified (principal); I10 Essential (primary) hypertension; F32.9 Major depressive disorder, single episode, unspecified; K21.9 Gastro-esophageal reflux disease without esophagitis; G47.33 Obstructive sleep apnea (adult) (pediatric); R73.03 Prediabetes; E78.2 Mixed hyperlipidemia; D64.9 Anemia, unspecified
CPT/HCPCS: 36415; 80053; 80061; 82607; 83036; 85025

== ENCOUNTER 2020-12-08 15:21 | Emergency (ER) | payer MEDICARE, SELFPAY ==
[2020-12-08 15:29] VITALS: BP 115/51; PULSE 66; RESP 18; TEMP 37.4; O2SAT 99
--- NOTE | 2020-12-08 15:44 | ED.SKABFB ---
HPI - Skin/Abscess/Foreign Bdy General Chief complaint: Skin/Abscess/Foreign Body Stated complaint: LEFT HAND PAIN Time Seen by Provider: 12/08/20 15:44 Source: patient Mode of arrival: ambulatory Limitations: no limitations History of Present Illness HPI narrative: Phyllis Gallegos is a 65 yo female with a PMH of GERD, HTN, depression , LITA , who comes to [facility] with a marquise thorn in the palm of her left hand. States can feel but not visible.it has been there since yesterday Related Data Home Medications Medication Instructions Recorded Confirmed cholecalciferol (vitamin D3) 2,000 unit PO DAILY 03/08/19 12/08/20 vitamin B complex [B 1 tablet PO DAILY 05/24/20 12/08/20 Complex-Vitamin B12] furosemide 20 mg PO BID 12/08/20 12/08/20 Allergies Allergy/AdvReac Type Severity Reaction Status Date / Time prochlorperazine Allergy Mild PT DOESNT Verified 12/08/20 15:44 REMEMBER flurazepam AdvReac Unknown Confusion Verified 12/08/20 15:44 tramadol AdvReac Unknown Nausea and Verified 12/08/20 15:44 Vomiting Contrast Media Allergy Severe ITCHING, Uncoded 12/08/20 15:44 SOB Review of Systems Review of Systems: CONSTITUTIONAL: Denies fever, chills, sweats. EYES: Denies visual changes, redness, discharge. ENT: Denies rhinorrhea, congestion, sore throat, otalgia. CARDIOVASCULAR: Denies chest pain, palpitations, edema. RESPIRATORY: Denies dyspnea, wheezing, cough GASTROINTESTINAL: Denies abdominal pain, nausea, vomiting, diarrhea. GENITOURINARY: Denies dysuria, hematuria, abnormal discharge SKIN: Denies rash or itching. NEUROLOGIC: Denies numbness, or focal weakness. PSYCHIATRIC: Denies anxiety or depression. Thinks there is thorn in palm of left hand PMFSH Past Medical History Medical History Anxiety Arthritis B12 deficiency Blood in stool Brain aneurysm BRAIN ANEURYSM WASH U.EVERY 2 YRS.JUST WATCHING Degenerative joint disease of knee Depression Elevated uric acid in blood AZIZA (generalized anxiety disorder) GERD (gastroesophageal reflux disease) GERD with esophagitis Heart murmur Hemorrhoid Hemorrhoids Hx of cataract Kidney disease Left shoulder pain Nausea & vomiting Numbness and tingling in both hands Numbness and tingling of both upper extremities LITA (obstructive sleep apnea) Osteoarthritis Phlebitis Rotator cuff tear Rotator cuff tendinitis Sleep apnea Stroke Tinnitus Transient ischemic attack Varicose veins of both legs with edema Varicose veins of both legs with edema Surgical History Surgical History H/O elbow surgery H/O shoulder surgery H/O toe surgery H/O wrist surgery H/O: hysterectomy History of cholecystectomy History of [place] fundoplication Hx of vascular surgery repair of varicose veins Status post right knee replacement Family History Family History Father Vein disorder Grandparent Vein disorder Mother Vein disorder Sibling Breast cancer DCIS, dx in 02/17/20 Social History Social History Social History: Single. Pt lives with boyfriend since 2008 Smoking packs per day: 1 Smoking cigarettes per day: 20.0 Years smoked: 8 Smoking pack-years: 8.00 Smoking status: Former smoker Tobacco type: cigarettes Second hand tobacco smoke exposure: No Smoking end date: 03/03/08 Alcohol intake: never Alcohol use details: rarely Substance use: never Substance use type: does not use Additional living arrangements comments: pt lives with boyfriend Gender identity (if verbalized by the patient): Female Sexual Orientation (if Verbalized by the Patient): Straight or Heterosexual Spiritual care concerns: No Agree to blood products: No Comments At time of signature, I agree with nursing past medical, obed
== END 2020-12-08 16:23 | disposition home or self-care (01) ==
PROVIDERS: Emergency Provider Nurse Practitioner; PCP Family Medicine
DX: S61.442A Puncture wound with foreign body of left hand, initial encounter (principal); W60.XXXA Contact with nonvenomous plant thorns and spines and sharp leaves, initial encounter; Z87.891 Personal history of nicotine dependence; E53.8 Deficiency of other specified B group vitamins; M17.10 Unilateral primary osteoarthritis, unspecified knee; K21.00 Gastro-esophageal reflux disease with esophagitis, without bleeding; R01.1 Cardiac murmur, unspecified; G47.33 Obstructive sleep apnea (adult) (pediatric); Z86.73 Personal history of transient ischemic attack (TIA), and cerebral infarction without residual deficits; I83.93 Asymptomatic varicose veins of bilateral lower extremities
CPT/HCPCS: 99212; G0463

== ENCOUNTER 2020-12-14 11:32 | Emergency (ER) | payer MEDICARE, SELFPAY ==
[2020-12-14 12:14] VITALS: BP 115/66; PULSE 62; RESP 14; TEMP 36.6; O2SAT 100
[2020-12-14 14:22] VITALS: BP 118/64; PULSE 63; RESP 14; TEMP 36.8; O2SAT 98
--- NOTE | 2020-12-14 15:02 | ED.GENADULT ---
HPI - General Adult General Chief complaint: Wound/Laceration <Asa Jo PA-C - Last Filed: 12/14/20 15:17> Stated complaint: wound to hand <Asa Jo PA-C - Last Filed: 12/14/20 15:17> Time Seen by Provider: 12/14/20 14:22 <Asa Jo PA-C - Last Filed: 12/14/20 15:17> Source: patient <Asa Jo PA-C - Last Filed: 12/14/20 15:17> Mode of arrival: ambulatory <NICKO Song Last Filed: 12/14/20 15:17> Limitations: no limitations <NICKO Song Last Filed: 12/14/20 15:17> History of Present Illness HPI narrative: Patient presents with chief complaint of wound reevaluation to her left palm that she sustained over a week ago via thorn. Patient reports that she presented to urgent care who attempted to remove the. They removed all. She states that she was told to soak the area and Epson salt did not apply antibiotic ointment so that it was very open and the risk of the thorn would expel itself. She states it is not painful to press only when the open wound area is manipulated. She denies any signs of infection. She would also like her urine check for uti's as she states she has been going to the bathroom more frequently but denies dysuria, fever, flank pain, nausea, or vomiting. She states she is prone to uti's but hasn't had one in over 6 months. <Asa Jo PA-C - Last Filed: 12/14/20 15:17> Related Data Home medications: Home Medications Medication Instructions Recorded Confirmed cholecalciferol (vitamin D3) 2,000 unit PO DAILY 03/08/19 12/08/20 vitamin B complex [B 1 tablet PO DAILY 05/24/20 12/08/20 Complex-Vitamin B12] furosemide 20 mg PO BID 12/08/20 12/08/20 <NICKO Song Last Filed: 12/14/20 15:17> Allergies/adverse reactions: Allergies Allergy/AdvReac Type Severity Reaction Status Date / Time prochlorperazine Allergy Mild PT DOESNT Verified 12/14/20 10:45 REMEMBER flurazepam AdvReac Unknown Confusion Verified 12/14/20 10:45 tramadol AdvReac Unknown Nausea and Verified 12/14/20 10:45 Vomiting Contrast Media Allergy Severe ITCHING, Uncoded 12/14/20 10:45 SOB <Asa Jo PA-C - Last Filed: 12/14/20 15:17> Review of Systems Review of Systems: CONSTITUTIONAL: Denies fever, chills, or sweats. EYES: Denies visual changes, redness, or discharge. ENT: Denies rhinorrhea, congestion, sore throat, or otalgia. CARDIOVASCULAR: Denies chest pain, palpitations, or edema. RESPIRATORY: Denies cough or dyspnea. GASTROINTESTINAL: Denies abdominal pain, nausea, vomiting, or diarrhea. GENITOURINARY: Reports urinary frequency denies dysuria or hematuria. SKIN: Reports wound Denies rash or itching. MUSCULOSKELETAL: Denies back pain, joint pain, or myalgia. NEUROLOGIC: Denies headache, numbness, dizziness, or weakness. PSYCHIATRIC: Denies anxiety or depression. <Asa Jo PA-C - Last Filed: 12/14/20 15:17> [facility] Past Medical History Medical History: Medical History (Updated 12/14/20 @ 15:15 by Asa Jo PA-C) Anxiety Arthritis B12 deficiency Blood in stool Brain aneurysm BRAIN ANEURYSM WASH U.EVERY 2 YRS.JUST WATCHING Degenerative joint disease of knee Depression Elevated uric acid in blood AZIZA (generalized anxiety disorder) GERD (gastroesophageal reflux disease) GERD with esophagitis Heart murmur Hemorrhoid Hemorrhoids Hx of cataract Incontinence of bowel Kidney disease Left shoulder pain Nausea & vomiting Numbness and tingling in both hands Numbness and tingling of both upper extremities LITA (obstructive sleep apnea) Osteoarthritis Phlebitis Rotator cuff tear Rotator cuff tendinitis Sleep apnea Stroke Tinnitus Transient ischemic attack Varicose veins of both legs with edema Varicose veins of both legs with edema <Asa Jo PA-C - Last Filed: 12/14/20 15:17> Surgical History Surgical History: Surgical History (Reviewed 12/14/20 @ 10:46 by Claudia
--- NOTE | 2020-12-14 15:15 | PC.NURSE ---
pt. states she wishes to leave and does not want [facility] ER[facility] notified and working on pt. discharge.
[2020-12-14 15:20] VITALS: BP 132/68; PULSE 88; RESP 14; O2SAT 97
== END 2020-12-14 15:20 | disposition home or self-care (01) ==
PROVIDERS: Emergency Provider Emergency Medicine; PCP Family Medicine
DX: S61.402D Unspecified open wound of left hand, subsequent encounter (principal); K21.00 Gastro-esophageal reflux disease with esophagitis, without bleeding; M17.10 Unilateral primary osteoarthritis, unspecified knee; N28.9 Disorder of kidney and ureter, unspecified; G47.33 Obstructive sleep apnea (adult) (pediatric); Z86.73 Personal history of transient ischemic attack (TIA), and cerebral infarction without residual deficits; E53.8 Deficiency of other specified B group vitamins; F41.1 Generalized anxiety disorder; F32.A Depression, unspecified; Z96.651 Presence of right artificial knee joint; Z87.891 Personal history of nicotine dependence; W26.8XXD Contact with other sharp object(s), not elsewhere classified, subsequent encounter
CPT/HCPCS: 99283

== ENCOUNTER 2021-03-18 10:44 | Emergency (ER) | payer MEDICARE, SELFPAY ==
[2021-03-18 11:01] VITALS: BP 121/68; PULSE 72; RESP 18; TEMP 36.8; O2SAT 100
--- NOTE | 2021-03-18 11:17 | ED.NAVMDI ---
HPI - Nausea/Vomiting/Diarrhea General Chief complaint: Nausea/Vomiting/Diarrhea Stated complaint: diarrhea Time Seen by Provider: 03/18/21 11:17 Source: patient Mode of arrival: ambulatory Limitations: no limitations History of Present Illness HPI Narrative: Phyllis is a 65-year-old female patient ambulated into the [facility]. Patient states she developed diarrhea on 03/14/2021. She had 2 episodes of diarrhea on Friday. On she also had 2 episodes of diarrhea. She has no fever; she took 4 doses of Imodium AD on , she had 2 small episodes of diarrhea on Friday. Friday she had no diarrhea. She woke up this morning has 2 diarrheal stools . She has been using Imodium all 4 doses x2 days. Patient states she has been eating yogurt to assist with diarrhea . MD elicited complaint: diarrhea Related Data Home Medications Medication Instructions Recorded Confirmed cholecalciferol (vitamin D3) 2,000 unit PO DAILY 03/08/19 12/21/20 vitamin B complex [B 1 tablet PO DAILY 05/24/20 12/21/20 Complex-Vitamin B12] furosemide 20 mg PO BID 12/08/20 12/21/20 Allergies Allergy/AdvReac Type Severity Reaction Status Date / Time prochlorperazine Allergy Mild PT DOESNT Verified 03/18/21 11:32 REMEMBER flurazepam AdvReac Unknown Confusion Verified 03/18/21 11:32 tramadol AdvReac Unknown Nausea and Verified 03/18/21 11:32 Vomiting Contrast Media Allergy Severe ITCHING, Uncoded 03/18/21 11:32 SOB Review of Systems Review of Systems: CONSTITUTIONAL: Denies body aches, fever, chills, or sweats. EYES: Denies visual changes, redness, or discharge. ENT: Denies rhinorrhea, congestion, sore throat, or otalgia. CARDIOVASCULAR: Denies chest pain, palpitations, or edema. RESPIRATORY: Denies cough or dyspnea. GASTROINTESTINAL: Denies abdominal pain, nausea, vomiting, +diarrhea. GENITOURINARY: Denies dysuria or hematuria. SKIN: Denies rash, itching, or wounds. MUSCULOSKELETAL: Denies back pain, joint pain, or myalgia. NEUROLOGIC: Denies headache, numbness, tingling, or weakness. PSYCH: Denies depression or anxiety. All systems reviewed & are unremarkable except as noted in HPI and below PMFSH Past Medical History Medical History Anxiety Arthritis B12 deficiency Blood in stool Brain aneurysm BRAIN ANEURYSM WASH U.EVERY 2 YRS.JUST WATCHING Degenerative joint disease of knee Depression Elevated uric acid in blood AZIZA (generalized anxiety disorder) GERD (gastroesophageal reflux disease) GERD with esophagitis Heart murmur Hemorrhoid Hemorrhoids Hx of cataract Incontinence of bowel Kidney disease Left shoulder pain Nausea & vomiting Numbness and tingling in both hands Numbness and tingling of both upper extremities LITA (obstructive sleep apnea) Osteoarthritis Phlebitis Rotator cuff tear Rotator cuff tendinitis Sleep apnea Stroke Tinnitus Transient ischemic attack Varicose veins of both legs with edema Varicose veins of both legs with edema Surgical History Surgical History H/O elbow surgery H/O shoulder surgery H/O toe surgery H/O wrist surgery H/O: hysterectomy History of cholecystectomy History of [place] fundoplication Hx of vascular surgery repair of varicose veins Status post right knee replacement Family History Family History Father Vein disorder Grandparent Vein disorder Mother Vein disorder Sibling Breast cancer DCIS, dx in 02/17/20 Social History Social History Social History: Single. Pt lives with boyfriend since 2008 Smoking packs per day: 1 Smoking cigarettes per day: 20.0 Years smoked: 8 Smoking pack-years: 8.00 Tobacco type: cigarettes Second hand tobacco smoke exposure: No Smoking end date: 03/03/08 Alcohol intake: never
== END 2021-03-18 11:40 | disposition home or self-care (01) ==
PROVIDERS: Emergency Provider Nurse Practitioner Family; PCP Family Medicine
DX: R19.7 Diarrhea, unspecified (principal); F17.210 Nicotine dependence, cigarettes, uncomplicated; Z96.651 Presence of right artificial knee joint; M19.90 Unspecified osteoarthritis, unspecified site; E53.8 Deficiency of other specified B group vitamins; K21.9 Gastro-esophageal reflux disease without esophagitis; R01.1 Cardiac murmur, unspecified; G47.33 Obstructive sleep apnea (adult) (pediatric); Z86.73 Personal history of transient ischemic attack (TIA), and cerebral infarction without residual deficits; I83.93 Asymptomatic varicose veins of bilateral lower extremities
CPT/HCPCS: 99211; G0463